=== PATIENT | male | born 1970 | race Caucasian/White ===

== ENCOUNTER → 2018-08-05 20:00 | Outpatient (CLI) | payer BC, SELFPAY | LOC: SL 23:22 | PROVIDERS: Referring Provider Clinical Nurse Specialist Acute Care; Visit Provider Clinical Nurse Specialist Acute Care | DX: G47.33 Obstructive sleep apnea (adult) (pediatric) (principal) | CPT/HCPCS: 95810 ==

== ENCOUNTER 2019-06-01 19:11 | Inpatient (IN) | payer BC, SELFPAY ==
[2019-06-01] VITALS (9 sets, daily range): BP systolic 116–134; BP diastolic 76–84; PULSE 81–118; RESP 14–24; TEMP 36.6–38.5; O2SAT 92–98; BMI 20.8; BMI 21.0; BMI 20.1
--- NOTE | 2019-06-01 20:08 | EKG12_ITS ---
Test Reason : SOB Blood Pressure : / mmHG Vent. Rate : 106 BPM Atrial Rate : 106 BPM P-R Int : 144 ms QRS Dur : 104 ms QT Int : 340 ms P-R-T Axes : 000 052 036 degrees QTc Int : 451 ms Sinus tachycardia Otherwise normal ECG Confirmed by DYAN EMANUEL ([id number]), mapping editor VIBHA MERCEDES ([id number]) on 06/03/2019 9:41:18 AM Referred By: MARTINA Confirmed By:DYAN EMANUEL
--- NOTE | 2019-06-01 20:09 | RAD_ITS ---
STUDY: X-RAY CHEST REASON FOR EXAM: Male, 49 years old. sent by urgent care. worsening flu symptoms. seen here last week for same. increased shortness of breath, weakness. TECHNIQUE: Single frontal view of the chest. COMPARISON: 06/30/2016 FINDINGS: Clips on the right. Right basilar alveolar disease. There is no demonstrated pleural abnormality. Normal size heart. Normal mediastinum and viola. Normal visualized pulmonary arteries. Normal visualized aortic arch and descending thoracic aorta. Normal visualized thoracic spine. Normal visualized ribs, clavicles, and shoulders. Right upper quadrant clips. RAD/Chest 1 View (Portable) IMPRESSION: Right basilar alveolar disease. Electronically Signed: Jaime Naranjo MD at 20:37 EST Tel , Service support ,
--- NOTE | 2019-06-01 20:09 | ED.VIS.GEN ---
History of Present Illness Chief Complaint: Fever Informant: Patient, Family Onset: Weeks - 1 Context: Gradual Onset Timing: Waxes and wanes Quality: achy Location: all over Current Severity: Moderate Maximum Severity: Moderate Worsened by: nothing in particular Relieved by: tylenol partially Associated Symptoms: myalgias, cough, sob, headache, ST, poor po intake, weakness all over Narrative: Patient diagnosed with influenza last week, 3 days after symptoms onset, which was about 9 days ago. He is getting worse. High fever still up to 103, short of breath, productive cough occasionally. No hemoptysis. Very poor appetite and oral intake. Headache, sore throat. Right ear decreased hearing but no pain. He was not started on Tamiflu because he presented outside of the window for the medication to be started, it was a different emergency room. He does not have a history of lung or heart disease that they know of but he does have a history of a stroke that left him with left arm weakness mostly. He is able to walk and usually does so without assistance but today he has been so weak that he has had trouble. He has had some dyspnea. No chest pains. No abdominal pain or vomiting. - Past Medical History (1) CVA (cerebral vascular accident) Status: Chronic (2) Patent foramen ovale Status: Chronic Past Medical History - Allergies and Home Meds Allergies/Adverse Reactions: Allergies Penicillins Allergy (Verified 06/01/19 20:47) Unknown Primary Care Physician: Care Physician,No Primary [Primary Care Provider] - Surgical History: - - As per HPI Lives: With Family Smoking Status: Current every day smoker - Family History Maternal Family History: Reports: No pertinent history Paternal Family History: Reports: No pertinent history Review of Systems General: Reports: Chills, Fever, Malaise, Sweats Eyes: Denies: Visual changes - bilaterally, Diplopia ENT: Reports: Rhinorrhea, Sore throat, - - decreased hearing right. Denies: Bilateral ear pain Cardiovascular: Denies: Chest pain, Palpitations Respiratory: Reports: Dyspnea, Cough, Sputum, Dyspnea on exertion. Denies: Orthopnea Gastrointestinal: Denies: Abdominal pain, Nausea, Vomiting, Diarrhea, Melena, Hematochezia Genitourinary: Denies: Dysuria, Hematuria, Frequency Musculoskeletal: Reports: Myalgias, Neck pain - sore. Denies: Arthralgias, Back pain, Swelling, Extremity Pain Skin: Denies: Rash, Wounds Neurological: Reports: Headache. Denies: Weakness, Numbness Physical Exam Vital Signs/Narrative: Vital Signs Temp Pulse Resp BP Pulse Ox 06/01/19 19:13 101.1 F H 118 H 16 134/80 H 92 Inital Vital Signs reviewed: Yes General: Well nourished, Well developed, No Acute Distress - Malaised Head: Normocephalic, Atraumatic Eyes: Perrl, EOMI ENT: Moist mucous membranes, No rhinorrhea, TM's clear - Partial cerumen impaction on right, TM is partially visible and nonerythematous. Neck: Supple, No lymphadenopathy. Negative for: Nontender - Mildly diffusely tender. No meningismus Cardiovascular: Regular rate, Regular rhythm, No murmurs Respiratory: No distress, CTA bilaterally - Rales both bases that cleared with bronchospasm and cough, Chest nontender Abdomen: Soft, Nontender, Nondistended, Normal bowel sounds Back: Nontender, Normal Inspection Extremities: Nontender, No edema Skin: Normal color, No rash, No Trauma Neurological: Alert, Oriented x3, Cranial nerves II-XII grossly intact, Normal Sensation, Weakness - Mostly left upper extremity Psychological: Normal affect, Normal Mood Diagnostic/Tx/Re-eval Impressions Chest X-Ray 06/01/19 20:09 IMPRESSION: Right basilar alveolar disease. Electronically Signed: Jaime Naranjo MD at 20:37 EST Tel , Service support , 06/01/19 20:09 Chest 1 View (Portable) [RAD] Stat Laboratory Results 06/01/19 06/01/19 06/01/19 20:20 20:20 20:20 WBC 16.7 H RBC 4.33 L Hgb 13.1 Hct 38.3 L MCV 88.5 MCH 30.3 MCHC 34.2 RDW Std Deviation 39.8 RDW Coeff of Joseph 12.2 Plt Count 320 MPV 10.0 Immature Gran % (Auto) 0.700 Neut % (Auto) 84.1 H Lymph % (Auto) 6.2 L [place] % (Auto) 8.7 Eos % (Auto) 0.0 Baso % (Auto) 0.3 Absolute Neuts (auto) 14.1 H Absolute Lymphs (auto) 1.03 Nucleated RBC % 0 PT 15.7 H INR 1.3 APTT 35.3 Sodium 133 L Potassium 3.5 Chloride 98 Carbon Dioxide 29.0 Anion Gap 6 BUN 7 Creatinine 0.82 Estim Creat Clear Calc 96.48 Est GFR (MDRD) Af Amer 126 Est GFR (MDRD) Non-Af 104 BUN/Creatinine Ratio 8.5 L Glucose 121 H Lactic Acid Calcium 8.7 Total Bilirubin 0.50 AST 16 ALT 29 Alkaline Phosphatase 89 Troponin I < 0.015 Total Protein 7.8 Albumin 2.7 L Globulin 5.1 H Albumin/Globulin Ratio 0.5 L Urine Color Urine Clarity Urine pH Ur Specific [place] Urine Protein Urine Glucose (UA) Urine Ketones Urine Occult Blood Urine Nitrite Urine Bilirubin Urine Urobilinogen Ur Leukocyte Esterase Urine RBC Urine WBC Ur Squamous Epith Cells Urine Bacteria Urine Mucus 06/01/19 06/01/19 20:20 21:25 WBC RBC Hgb Hct MCV MCH MCHC RDW Std Deviation RDW Coeff of Joseph Plt Count MPV Immature Gran % (Auto) Neut % (Auto) Lymph % (Auto) [place] % (Auto) Eos % (Auto) Baso % (Auto) Absolute Neuts (auto) Absolute Lymphs (auto) Nucleated RBC % PT INR APTT Sodium Potassium Chloride Carbon Dioxide Anion Gap BUN Creatinine Estim Creat Clear Calc Est GFR (MDRD) Af Amer Est GFR (MDRD) Non-Af BUN/Creatinine Ratio Glucose Lactic Acid 1.1 Calcium Total Bilirubin AST ALT Alkaline Phosphatase Troponin I Total Protein Albumin Globulin Albumin/Globulin Ratio Urine Color Yellow Urine Clarity Clear Urine pH 8.0 Ur Specific [place] 1.015 Urine Protein 15 H Urine Glucose (UA) Normal Urine Ketones Negative Urine Occult Blood Negative Urine Nitrite Negative Urine Bilirubin Negative Urine Urobilinogen 12 H Ur Leukocyte Esterase Negative Urine RBC 0 SEEN Urine WBC 0-5 SEEN Ur Squamous Epith Cells 0-5 SEEN Urine Bacteria 0 SEEN Urine Mucus 0 SEEN - Rhythm Strip Rhythm Strip: Sinus Tach Rate: 106 Ectopy: None - EKG Initial EKG Interpretation: No Acute Injury Pattern, Sinus Tachycardia - Medical Decision Making X-ray shows pneumonia. Unknown if this is influenza pneumonia or bacterial superinfection, so antibiotics to cover community-acquired pneumonia and Tamiflu both started as soon as the diagnosis was discovered. He meets sepsis criteria but is hemodynamically and clinically stable. He is still dyspneic after an aerosol, mildly. In no distress. Tried to take him off of oxygen but he was still hypoxic into the 80s so it was placed back to 4 L nasal cannula where he is satting at 95%. His lactate is within normal limits. Blood culture sent prior to antibiotics started. Plan is for admission to the hospital. Discussed with hospitalist. ED Disposition - Plan for ED Patient: Disposition: Acute Care Hospital [facility] Diagnosis: Influenza and pneumonia, Sepsis due to pneumonia, Hypoxemia Referrals: Care Physician,No Primary [Primary Care Provider] -
[2019-06-01] MEDS: Albuterol 2.5 MG/3 ML VIAL.NEB. INHALATION ×2 (20:23→22:39)
[2019-06-01] MEDS: Ketorolac 15 MG/ML Vial IV (20:33)
[2019-06-01 20:34] LABS: Absolute Lymphocyte Count 1.03 X10^3/uL (0.83-4.51); Absolute Neutrophil Count 14.1 X10^3/uL (2.0-7.7); Basophil# 0.05 X10^3/uL; Basophil% 0.3 % (0-1); Hematocrit 38.3 % (40-54); Hemoglobin 13.1 g/dL (13.0-16.5); Lymphocyte # 1.03 X10^3/ul (4.0); Lymphocyte % 6.2 % (19-41); Mean Corp Hgb Conc 34.2 g/dL (32-36); Mean Corpuscular Hgb 30.3 pg (27.0-32.0); Mean Corpuscular Volume 88.5 fL (80-94); Monocyte# 1.45 X10^3/uL; Monocyte% 8.7 % (0-10); NRBC Flagged by Analyzer 0 % (0-5); Neutrophil # 14.06 X10^3/uL (2.7-7.7); Neutrophil % 84.1 % (47-70); Platelet Count 320 K/mm3 (150-450); RBC Distribution Width CV 12.2 % (11.6-14.6); RBC Distribution Width SD 39.8 fl (35.1-43.9); Red Blood Count 4.33 M/mm3 (4.6-6.2); White Blood Count 16.7 K/mm3 (4.4-11.0)
[2019-06-01] MEDS: Acetaminophen 500 MG Tablet 1000 MG PO (20:35)
[2019-06-01] MEDS: 0.9% Normal Saline 1,000 ML 999 ML IV (20:36)
[2019-06-01 20:43] LABS: International Normalized Ratio 1.3; Prothrombin Time (Protime)PT. 15.7 SECONDS (11.7-14.9)
[2019-06-01 20:44] LABS: Partial Thromboplast Time 35.3 Seconds (24.1-36.2)
[2019-06-01 20:56] LABS: ALB/GLOB Ratio 0.5 RATIO (0.9-2.4); AST(SGOT) 16 U/L (15-37); Alanine Aminotransfer ALT/SGPT 29 U/L (16-61); Albumin, Serum 2.7 g/dL (3.2-5.0); Alkaline Phosphatase 89 U/L (45-117); Anion Gap 6 (5-15); BUN 7 mg/dL (7-18); BUN/Creat Ratio 8.5 RATIO (10-20); Calcium,Total 8.7 mg/dL (8.5-10.1); Chloride 98 mmol/L (98-107); Creatinine, Serum 0.82 mg/dL (0.70-1.30); EST Glomerular Filtration Rate 104 mL/min (>60); Est Glom Filt Rate - Afr Amer 126 mL/min (>60); Estimated Creatinine Clearance 96.48 ml/min; Globulin 5.1 g/dL (2.2-4.2); Glucose 121 mg/dL (74-106); Potassium 3.5 mmol/L (3.5-5.1); Protein, Total 7.8 g/dL (6.4-8.2); Sodium Level 133 mmol/L (136-145)
[2019-06-01 21:19] LABS: Lactic Acid 1.1 mmol/L (0.4-1.9)
[2019-06-01 21:33] LABS: Bacteria 0 SEEN /hpf (None Seen); Mucous, Urine 0 SEEN /hpf (<or=2+); Red Blood Cells-Urine 0 SEEN /hpf (0-5)
[2019-06-01 21:35] LABS: Color, Urine Yellow (Yellow); Glucose, Dipstick Normal (Normal); Ketone-Dipstick Negative (Negative); Leukocyte Esterase-Dipstick Negative /ul (Negative); Nitrite-Dipstick Negative (Negative); Occult Blood-Urine Negative /ul (Negative); Protein-Dipstick 15 mg/dl (Negative); Specific Gravity, Urine 1.015 (1.002-1.030); Urine Bilirubin Dipstick Negative (Negative); Urine Clarity Clear (Clear); Urine Urobilinogen 12 mg/dl (Normal)
[2019-06-01 21:51] LABS: Squamous Epithelial Cells - UA 0-5 SEEN /hpf (0-5); White Blood Cells 0-5 SEEN /hpf (0-5)
[2019-06-01] MEDS: Oseltamivir Phosphate 75 MG Capsule PO (22:16)
[2019-06-02] VITALS (19 sets, daily range): BP systolic 105–124; BP diastolic 74–82; PULSE 76–111; RESP 16–24; TEMP 36.4–37.7; O2SAT 94–99
[2019-06-02 03:47] LABS: M R Staph aureus DNA By PCR Negative (Negative); Probe Check PASS; Specimen Processing Control PASS
[2019-06-02] MEDS: guaiFENesin 1,200 MG Tablet 1200 MG PO ×2 (04:16→21:07)
--- NOTE | 2019-06-02 04:27 | HP.PCM_ITS ---
Problem List (1) Influenza and pneumonia Status: Acute (2) Sepsis due to pneumonia Status: Acute (3) Hypoxemia Status: Acute (4) Tobacco dependence Status: Chronic (5) Patent foramen ovale Status: Inactive (6) CVA (cerebral vascular accident) Status: Chronic Qualifiers: CVA mechanism: unspecified Qualified Code(s): I63.9 - Cerebral infarction, unspecified History of Present Illness Date of Admission: 06/02/19 Chief Complaint: malaise The patient is a 49 year old M with a significant history of multiple CVAs who presents emergency department with malaise that has been going on for 1 1/2 weeks to 2 weeks. He reported that he was diagnosed with influenza however he received no treatment since that past the window for treatment. Associated with his symptoms is headache; stomach ache; productive cough of yellow and white sputum. He reports a fever with home temperature between 101-102 F. Further he reports chills without rigors. He reports weakness to the point that he cannot stand up. Chest x-ray showed right basilar alveolar disease. Past Medical History Past Medical History (Chronic Problems): Chronic Problems Tobacco dependence (Chronic) CVA (cerebral vascular accident) (Chronic) Allergies Penicillins Allergy (Verified 06/01/19 20:47) Unknown Home Medications: Ambulatory Orders Medication Instructions Recorded Multivitamin [Multiple Vitamins] 1 each PO DAILY 06/30/16 Aspirin E.C. [Ecotrin] 81 mg PO DAILY@0800 tablet 07/02/16 Atorvastatin Calcium [Lipitor] 40 mg PO QHS #30 tablet 07/02/16 Surgical History: - - Lung surgery. Psychiatric History: No pertinent psych hx Lives: Spouse/ Significant Other Smoking Status: Former smoker - *Family History Maternal History Items: - - Patient denies knowledge of maternal medical history. Paternal History Items: Diabetes Review of Systems Constitutional: Reports: Anorexia, Chills, Fever, Malaise, Weakness, Fatigue HEENT: Reports: Head Aches. Denies: Sinus Congestion, Sinus Drainage Cardiovascular: Denies: Chest Pain, Palpitations Respiratory: Reports: Cough, Shortness of Breath, Sputum production Gastrointestinal: Reports: Abdominal Pain. Denies: Nausea, Vomiting Genitourinary: Denies: Dysuria Musculoskeletal: Reports: Muscle pain. Denies: Joint Pain, Joint Tenderness Skin: Denies: Rash, Wounds Neurological: Reports: Numbness - Right hand, chronic, attributes to history of CVA.. Denies: Focal weakness, Tingling Psychiatric: Denies: Anxiety, Depression, Homicidal Ideations, Suicidal Ideations Hematologic/ Lymphatic: Denies: Easy Bruising, Easy Bleeding VTE Information - Inpt Only VTE Present on Admission: No VTE Mechan Device Prophylaxis: None VTE Pharm Prophylaxis ordered?: Yes Patient Problems: Active and Suspected Problems Influenza and pneumonia (Acute) Sepsis due to pneumonia (Acute) Hypoxemia (Acute) - Physical Exam Vitals/I&O's: Vital Signs Temp Pulse Resp BP Pulse Ox 98 F 76 18 124/82 H 94 06/02/19 04:00 06/02/19 04:00 06/02/19 04:00 06/02/19 04:00 06/02/19 04:00 Oxygen Flow Rate (L/min) 3 Oxygen Delivery Method Nasal Cannula Weight: 61.6 kg Body Mass Index (BMI) 20.0 Finger Stick Blood Glucose 95 Intake and Output for Last 24 Hours 05/31/19 06/01/19 06/02/19 23:59 23:59 23:59 Intake Total 1305 / 1305 Balance 1305 / 1305 General: Alert, Oriented x3, Cooperative HEENT: Atraumatic, PERRLA, EOMI, Normocephalic Neck: Supple, No JVD, Negative Carotid Bruits Lungs: Normal air movement, Diminished Cardiovascular: Regular rate, Normal S1, Normal S2, No murmurs Abdomen: Bowel Sounds Present, Soft, Non Tender Extremities: No edema, Capillary Refill Less than 3 Seconds Skin: No rashes, No breakdown Musculoskeletal: No Tenderness to Palpation of Joints or Extremities Neurological: Cranial nerves II-XII grossly intact Psych/Mental Status: Normal Affect, Appropriate Microbiology Past 72 Hours 06/01/19 21:25 Urine, Clean Catch Streptococcus pneumoniae Antigen (M - Final 06/01/19 21:25 Urine, Clean Catch Legionella Antigen - Final 06/01/19 21:25 Mucosa - Throat Group A Streptococcus Rapid Screen - P reliminary Laboratory Results 06/01/19 20:20: WBC 16.7 H, RBC 4.33 L, Hgb 13.1, Hct 38.3 L, MCV 88.5, MCH 30.3, MCHC 34.2, RDW Std Deviation 39.8, RDW Coeff of Joseph 12.2, Plt Count 320, MPV 10.0, Immature Gran % (Auto) 0.700, Neut % (Auto) 84.1 H, Lymph % (Auto) 6.2 L, [place] % (Auto) 8.7, Eos % (Auto) 0.0, Baso % (Auto) 0.3, Absolute Neuts (auto) 14.1 H, Absolute Lymphs (auto) 1.03, Nucleated RBC % 0 06/01/19 20:20: PT 15.7 H, INR 1.3, APTT 35.3 06/01/19 20:20: Sodium 133 L, Potassium 3.5, Chloride 98, Carbon Dioxide 29.0, Anion Gap 6, BUN 7, Creatinine 0.82, Estim Creat Clear Calc 96.48, Est GFR (MDRD) Af Amer 126, Est GFR (MDRD) Non-Af 104, BUN/Creatinine Ratio 8.5 L, Glucose 121 H, Calcium 8.7, Total Bilirubin 0.50, AST 16, ALT 29, Alkaline Phosphatase 89, Troponin I < 0.015, Total Protein 7.8, Albumin 2.7 L, Globulin 5.1 H, Albumin/Globulin Ratio 0.5 L 06/01/19 20:20: Lactic Acid 1.1 06/01/19 21:25: Urine Color Yellow, Urine Clarity Clear, Urine pH 8.0, Ur Specific [place] 1.015, Urine Protein 15 H, Urine Glucose (UA) Normal, Urine Ketones Negative, Urine Occult Blood Negative, Urine Nitrite Negative, Urine Bilirubin Negative, Urine Urobilinogen 12 H, Ur Leukocyte Esterase Negative, Urine RBC 0 SEEN, Urine WBC 0-5 SEEN, Ur Squamous Epith Cells 0-5 SEEN, Urine Bacteria 0 SEEN, Urine Mucus 0 SEEN 06/02/19 00:05: MRSA (PCR) Negative Current Medications Acetaminophen (Tylenol) 650 mg PO Q6H PRN PRN PRN Reason: Pain Score 1-10/Temp > 100.7 F Albuterol Sulfate (Ventolin Aerosols) 2.5 mg INHALATION Q2H PRN PRN PRN Reason: Shortness of Breath/Wheezing Albuterol/Ipratropium (Duoneb) 3 ml INHALATION Q4HWA.RT JOSE Aspirin (Ecotrin) 81 mg PO DAILY@0800 JOSE Atorvastatin Calcium (Lipitor) 40 mg PO QHS [facility] Enoxaparin Sodium (Lovenox) 40 mg SC DAILY [facility] Glucagon () 1 mg IM .X1 PRN PRN Reason: Hypoglycemia Guaifenesin (Mucinex) 1,200 mg PO BID [facility] Last Admin: 06/02/19 04:16 Dose: 1,200 mg Documented by: Ceftriaxone Sodium 2 gm/ (Sodium Chloride) 50 mls @ 100 mls/hr IV Q24H [facility] Azithromycin 500 mg/ Dextrose 255 mls @ 250 mls/hr IV Q24H [facility] Dextrose (Dextrose 10%-Water) 250 mls @ 999 mls/hr IV .Q16M PRN; Protocol PRN Reason: HYPOGLYCEMIA Multivitamins (Multivitamin) 1 tablet PO DAILY@0800 [facility] Nutritional Formula (Lactose Free) (Ensure Enlive) 120 ml PO 4X/DAY [facility] Ondansetron HCl (Zofran) 4 mg IV Q8H PRN PRN PRN Reason: NAUSEA/VOMITING Oseltamivir Phosphate (Tamiflu) 75 mg PO BID [facility] Stop: 06/06/19 10:01 Senna/Docusate Sodium (Senokot-S, Richa-Colace) 2 tablet PO BID PRN PRN PRN Reason: Constipation Sodium Chloride () 10 - 40 ml IV UD PRN PRN Reason: SALINE FLUSH Assessment/Plan All Active Problems Influenza and pneumonia (Acute) Sepsis due to pneumonia (Acute) Hypoxemia (Acute) The patient is a 49 year old M with a significant history of multiple CVAs who presents emergency department with malaise that has been going on for 1/2 weeks to 2 weeks; positive influenza by received no treatment because he was past window; headache; stomach ache; productive cough of yellow and white sputum; fever and chills and x-ray finding consistent with right basilar alveolar disease consistent with sepsis secondary to pneumonia. Sepsis secondary to pneumonia Possible gram-negative or gram-positive. Lactic acid: 1.1 RR ~highest of 24 Heart rate: Highest of 118 Oxygen saturation: 88% on nasal cannula. Strep pneumonia and urinary Legionella antigen ordered. Blood culture ?2 is pending Chest x-ray: Right basilar alveolar disease. Chest x-ray was independently reviewed. I agree with that interpretation. Respiratory Gram stain and culture pending Antibiotics: Started on azithromycin and ceftriaxone; continued. DuoNeb scheduled. Albuterol as needed Influenza infection Tamiflu started emergency department; continued Generalized weakness Likely secondary to pneumonia PT and OT consult. Pneumonia treatment as above. Prophylaxis Subcutaneous Lovenox. Code Visit Inpatient E&M: 15028 Init Hosp L3
[2019-06-02] MEDS: Albuterol 2.5 MG/3 ML VIAL.NEB. INHALATION (05:54)
[2019-06-02 06:13] LABS: Absolute Neutrophil Count 5.2 X10^3/uL (2.0-7.7); Basophil# 0.05 X10^3/uL; Basophil% 0.6 % (0-1); Eosinophil# 0.12 X10^3/uL; Eosinophils% 1.6 % (0-5); Hematocrit 33.1 % (40-54); Hemoglobin 12.4 g/dL (13.0-16.5); Mean Corp Hgb Conc 37.5 g/dL (32-36); Mean Corpuscular Hgb 34.2 pg (27.0-32.0); Mean Corpuscular Volume 91.2 fL (80-94); Mean Platelet Vol. 9.9 fl (6.2-12.0); Monocyte# 0.63 X10^3/uL; Monocyte% 8.2 % (0-10); NRBC Flagged by Analyzer 0 % (0-5); Neutrophil # 5.16 X10^3/uL (2.7-7.7); Platelet Count 220 K/mm3 (150-450); RBC Distribution Width CV 15.6 % (11.6-14.6); RBC Distribution Width SD 49.1 fl (35.1-43.9); Red Blood Count 3.63 M/mm3 (4.6-6.2); White Blood Count 7.7 K/mm3 (4.4-11.0)
[2019-06-02 06:51] LABS: Anion Gap 8 (5-15); BUN 7 mg/dL (7-18); BUN/Creat Ratio 11.5 RATIO (10-20); Calcium,Total 8.3 mg/dL (8.5-10.1); Chloride 101 mmol/L (98-107); Creatinine, Serum 0.61 mg/dL (0.70-1.30); EST Glomerular Filtration Rate 148 mL/min (>60); Est Glom Filt Rate - Afr Amer 179 mL/min (>60); Estimated Creatinine Clearance 124.83 ml/min; Glucose 108 mg/dL (74-106); Potassium 3.6 mmol/L (3.5-5.1); Sodium Level 137 mmol/L (136-145)
--- NOTE | 2019-06-02 07:30 | PCM.PN.BLA ---
Progress Note 49y/o male with PMHx of 4 CVAs, who comes in with generalised malaise, cough and being managed as pneumonia, confirmed with CXR. Patient was seen and examined. He feels very fatigued, short of breath. Having low-grade fevers, T-max of 101.3F, is on 2 L of oxygen saturating at 99% Lab review showed improved WBC count to 7.7, resolved hyponatremia Continue on gentle IV fluids, IV ceftriaxone and azithromycin STROKE Vital Signs/Narrative: Vital Signs Temp Pulse Resp BP Pulse Ox 06/02/19 06:07 96 06/02/19 05:55 101 H 24 H 96 06/02/19 04:00 98 F 76 18 124/82 H 94
[2019-06-02] MEDS: Acetaminophen 325 MG Tablet 650 MG PO (09:35)
[2019-06-02] MEDS: Benzonatate 100 MG Capsule PO ×3 (09:35→21:07)
[2019-06-02] MEDS: Aspirin E.C. 81 MG Tablet PO (09:35)
[2019-06-02] MEDS: 0.9% Saline Lock 10 ML Syringe IV ×2 (09:35→11:40)
[2019-06-02] MEDS: Enoxaparin 40 MG/0.4 ML Syringe SC (09:36)
--- NOTE | 2019-06-02 11:20 | CASEMGMT ---
RN RAFAELA Face to Face with patient for initial transition planning/care coordination assessment. RN CM introduced self and role at [facility]. Patient sitting in chair, alert and oriented. Patient willing to participate in assessment and is able to answer all questions appropriately. Care providers, pharmacy, and demographics verified. Patient wishes to discharge home, denies need for home health at this time. Patient states he has no further needs or concerns at this time. CM to follow for discharge planning needs that may arise. PCP: No PCP, patient provided with list of PCP Specialists: None Preferred Pharmacy: [facility] Insurance: [employer] Prescription Benefit: yes Living Will/HPOA: none LNOK: Living Arrangements: Patient lives with 2 story home. Patient independent and able to ambulate stairs. Transportation: self/ DME/HHC: Patient denies need for DME or HHC. Disposition Plan: Patient to discharge home with family support and follow-up plans in place. Nalini NÚÑEZ, RN, CM
[2019-06-02] MEDS: 0.9% Normal Saline 1,000 ML 100 ML IV ×2 (11:40→22:36)
[2019-06-02] MEDS: Ipratropium/Albuterol Sulfate 3 ML AMPUL.NEB INHALATION ×3 (11:44→19:32)
--- NOTE | 2019-06-02 12:14 | NURSING ---
Student documentation reviewed.
[2019-06-02] MEDS: Atorvastatin Calcium 40 MG Tablet PO (21:07)
[2019-06-03] VITALS (7 sets, daily range): BP systolic 113–119; BP diastolic 75–86; PULSE 87–99; RESP 18; TEMP 36.9; O2SAT 93–96
[2019-06-03] MEDS: Ipratropium/Albuterol Sulfate 3 ML AMPUL.NEB INHALATION ×2 (06:47→10:43)
[2019-06-03] MEDS: Aspirin E.C. 81 MG Tablet PO (09:49)
[2019-06-03] MEDS: Enoxaparin 40 MG/0.4 ML Syringe SC (09:50)
[2019-06-03] MEDS: Multivitamins,Therapeutic Tablet 1 TABLET PO (09:50)
[2019-06-03] MEDS: guaiFENesin 1,200 MG Tablet 1200 MG PO (09:50)
--- NOTE | 2019-06-03 10:15 | DCINST_ITS ---
- Discharge Diagnoses Current Active Problems: Current Active and Chronic Problems Influenza and pneumonia (Acute) Sepsis due to pneumonia (Acute) Hypoxemia (Acute) Reason(s) for Visit for Discharge Instructions: Fever and cough You will use the following diet at home:: Regular Your food should be the consistency of: Regular Your liquids should be the consistency of: Regular/Thin Discharge Activity: Return to Normal Activity Instructions: Pneumonia, Treating Pneumonia Additional Instructions: Complete your antibiotics. Continue to use your incentive spirometer. Continue to remain active and eat healthy. Let your doctor know if you develop fever >101.3F or have progressive worsening shortness of breath. Allergies/Adverse Reactions: Allergies Penicillins Allergy (Verified 06/01/19 20:47) Unknown Medications to take at Discharge Multivitamin [Multiple Vitamins] 1 each PO DAILY 06/30/16 Aspirin E.C. [Ecotrin] 81 mg PO DAILY@0800 tablet 07/02/16 Atorvastatin Calcium [Lipitor] 40 mg PO QHS #30 tablet 07/02/16 Acetaminophen [Tylenol Tablet] 650 mg PO Q6H PRN PRN tablet 06/03/19 Amoxicillin/Potassium Clav [Augmentin 875-125 Tablet] 1 ea PO BID 5 Days #10 tab 06/03/19 Azithromycin 500 mg PO DAILY 3 Days #3 tab 06/03/19 Benzonatate [Tessalon Perle] 100 mg PO 4X/DAY PRN PRN 5 Days #20 cap 06/03/19 Ensure Enlive 120 ml PO 4X/DAY 30 Days #120 liquid 06/03/19 Guaifenesin [Mucinex] 1,200 mg PO BID 10 Days #20 tab 06/03/19 The following prescriptions were given: Amoxicillin/Potassium Clav [Augmentin 875-125 Tablet] 1 ea PO BID 5 Days #10 tab [id number] Azithromycin 500 mg PO DAILY 3 Days #3 tab Transmission [facility] Ensure Enlive 120 ml PO 4X/DAY 30 Days #120 liquid Transmission [facility]: [facility] Guaifenesin [Mucinex] 1,200 mg PO BID 10 Days #20 tab Transmission [facility]: [facility] Benzonatate [Tessalon Perle] 100 mg PO 4X/DAY PRN PRN 5 Days #20 cap PRN Reason: COUGH Transmission Status: Pending to [id number] Primary Care Physician: Care Physician,No Primary [Primary Care Provider] - Please follow up with your Primary Care Physician in: within 1-2 weeks Test Results: Test results from this visit will be discussed in further detail at your follow- up appointment, if applicable. Proposed Discharge Date: 06/03/19
--- NOTE | 2019-06-03 10:18 | PCM.DC.SUM ---
Discharge Date and Diagnosis Date of Admission: 06/02/19 Date of Discharge: 06/03/19 - Primary Discharge Diagnosis Active and Suspected Problems Sepsis secondary to pneumonia - Secondary Discharge Diagnosis Chronic Problems Tobacco dependence (Chronic) CVA (cerebral vascular accident) (Chronic) Hospital Course and Treatment Imaging Results: Clinical Impression(s) from Imaging Studies Chest X-Ray 06/01/19 20:09 IMPRESSION: Right basilar alveolar disease. Electronically Signed: Jaime Naranjo MD at 20:37 EST Tel , Service support , None Operations: None Procedures: None Summary of Care Provided: The patient is a 49 year old M with past medical history of multiple CVAs, who comes in with complaints of generalized malaise ongoing with 2 weeks. Patient admits that he was diagnosed with influenza but was not on Tamiflu because he was past the window for Tamiflu. He comes in with fever, chills, progressive shortness of breath. Admitting chest x-ray showed right basilar alveolar disease. [facility] and managed as pneumonia. He was started on IV ceftriaxone and azithromycin and continued on gentle fluids as well as oxygen. By the next day patient was off oxygen, was ambulated and did not qualify for home oxygen. He was discharged on cefdinir and azithromycin. He was encouraged to use his incentive spirometer. He will follow-up with his primary care doctor within 2 weeks. Subjective: On the day of discharge, patient was seen and examined. Denied any new complaints. - Physical Exam Vitals/I&O's: Vital Signs Temp Pulse Resp BP Pulse Ox 98.4 F 96 18 113/75 96 06/03/19 09:48 06/03/19 09:48 06/03/19 09:48 06/03/19 09:48 06/03/19 09:48 Oxygen Flow Rate (L/min) 1 Oxygen Delivery Method Room Air Weight: 61.6 kg Body Mass Index (BMI) 20.0 Finger Stick Blood Glucose 95 Intake and Output for Last 24 Hours 06/01/19 06/02/19 06/03/19 23:59 23:59 23:59 Intake Total 1305 / 1305 2981.67 / 2981.67 Output Total 2049 400 / 400 Balance 1305 / 1305 931.67 / 931.67 -400 / -400 General: Alert, Oriented x3, Cooperative, No apparent distress HEENT: Atraumatic, PERRLA, EOMI, Normocephalic Oral: Moist Mucosa Neck: Supple Lungs: Diminished Cardiovascular: Regular rate, Regular Rhythm, Normal S1, Normal S2, No murmurs Abdomen: Bowel Sounds Present, Soft, Non Tender, Non-Distended, No Hepato-splenomegaly Extremities: No edema Skin: No rashes Musculoskeletal: No Tenderness to Palpation of Joints or Extremities Lymphatic: No Cervical, Supraclavicular, or Inguinal Adenopathy Neurological: Cranial nerves II-XII grossly intact, Neuro grossly intact Psych/Mental Status: Normal Affect, Appropriate Microbiology Past 72 Hours 06/02/19 17:20 Sputum, Expectorated/Coughed Gram Stain - Preliminary 06/01/19 21:25 Mucosa - Throat Group A Streptococcus Rapid Screen - Preliminary 06/01/19 21:25 Urine, Clean Catch Streptococcus pneumoniae Antigen (M - Final 06/01/19 21:25 Urine, Clean Catch Legionella Antigen - Final Current Medications Acetaminophen (Tylenol) 650 mg PO Q6H PRN PRN PRN Reason: Pain Score 1-10/Temp > 100.7 F Last Admin: 06/02/19 09:35 Dose: 650 mg Documented by: Albuterol Sulfate (Ventolin Aerosols) 2.5 mg INHALATION Q2H PRN PRN PRN Reason: Shortness of Breath/Wheezing Last Admin: 06/02/19 05:54 Dose: 2.5 mg Documented by: Albuterol/Ipratropium (Duoneb) 3 ml INHALATION Q4HWA.RT [facility] Last Admin: 06/03/19 06:47 Dose: 3 ml Documented by: Aspirin (Ecotrin) 81 mg PO DAILY@0800 [facility] Last Admin: 06/03/19 09:49 Dose: 81 mg Documented by: Atorvastatin Calcium (Lipitor) 40 mg PO QHS [facility] Last Admin: 06/02/19 21:07 Dose: 40 mg Documented by: Benzonatate (Tessalon Perle) 100 mg PO 4X/DAY PRN PRN PRN Reason: COUGH Last Admin: 06/02/19 21:07 Dose: 100 mg Documented by: Enoxaparin Sodium (Lovenox) 40 mg SC DAILY [facility] Last Admin: 06/03/19 09:50 Dose: 40 mg Documented by: Glucagon () 1 mg IM .X1 PRN PRN Reason: Hypoglycemia Guaifenesin (Mucinex) 1,200 mg PO BID [facility] Last Admin: 06/03/19 09:50 Dose: 1,200 mg Documented by: Ceftriaxone Sodium 2 gm/ (Sodium Chloride) 50 mls @ 100 mls/hr IV Q24H [facility] Last Infusion: 06/02/19 23:10 Dose: Infused Documented by: Azithromycin 500 mg/ Dextrose 255 mls @ 250 mls/hr IV Q24H [facility] Last Infusion: 06/02/19 22:20 Dose: Infused Documented by: Dextrose (Dextrose 10%-Water) 250 mls @ 999 mls/hr IV .Q16M PRN; Protocol PRN Reason: HYPOGLYCEMIA Multivitamins (Multivitamin) 1 tablet PO DAILY@0800 [facility] Last Admin: 06/03/19 09:50 Dose: 1 tablet Documented by: Nutritional Formula (Lactose Free) (Ensure Enlive) 120 ml PO 4X/DAY [facility] Last Admin: 06/03/19 09:50 Dose: Not Given Documented by: Ondansetron HCl (Zofran) 4 mg IV Q8H PRN PRN PRN Reason: NAUSEA/VOMITING Senna/Docusate Sodium (Senokot-S, Richa-Colace) 2 tablet PO BID PRN PRN PRN Reason: Constipation Sodium Chloride () 10 - 40 ml IV UD PRN PRN Reason: SALINE FLUSH Last Admin: 06/02/19 11:40 Dose: 10 ml Documented by: Discharge Diet: Low fat/ Low Cholesterol, 2000 mg Sodium Diet Discharge Activity: Return to Normal Activity Home Medications: Medications to take at Discharge Multivitamin [Multiple Vitamins] 1 each PO DAILY 06/30/16 Aspirin E.C. [Ecotrin] 81 mg PO DAILY@0800 tablet 07/02/16 Atorvastatin Calcium [Lipitor] 40 mg PO QHS #30 tablet 07/02/16 Acetaminophen [Tylenol Tablet] 650 mg PO Q6H PRN PRN tab 06/03/19 Azithromycin 500 mg PO DAILY 3 Days #3 tab 06/03/19 Benzonatate [Tessalon Perle] 100 mg PO 4X/DAY PRN PRN 5 Days #20 cap 06/03/19 Cefdinir [Omnicef [equiv]] 300 mg PO Q12H 5 Days #10 cap 06/03/19 Ensure Enlive 120 ml PO 4X/DAY 30 Days #120 liquid 06/03/19 Guaifenesin [Mucinex] 1,200 mg PO BID 10 Days #20 tab 06/03/19 Following Prescrptions Were Given to Patient: Azithromycin 500 mg PO DAILY 3 Days #3 tab Transmission Status: Received by [id number] Ensure Enlive 120 ml PO 4X/DAY 30 Days #120 liquid Transmission Status: Received by [facility] Guaifenesin [Mucinex] 1,200 mg PO BID 10 Days #20 tab Transmission Status: Received by [facility] Cefdinir [Omnicef [equiv]] 300 mg PO Q12H 5 Days #10 cap Transmission Status: Received by [facility] Benzonatate [Tessalon Perle] 100 mg PO 4X/DAY PRN PRN 5 Days #20 cap PRN Reason: COUGH Transmission Status: Received by [facility] Primary Care Physician: Care Physician,No Primary [Primary Care Provider] - Please follow up with your Primary Care Physician in: within 1-2 weeks Patient Instructions: Treating Pneumonia, Pneumonia Disposition: Home Minutes spent on discharge:: 40 Patient Condition:: Stable Medical Necessity - Tobacco Use Smoking Status: Former smoker Tobacco Use: Non-smoker Meaningful Use Info Meaningful Use Diagnoses (Choose all that apply): None applicable Code Visit Inpatient E&M: 18247 Disch Hosp
== END 2019-06-03 13:15 | disposition home or self-care (01) | DRG 871 ==
LOC: ED 22:01 → MS3 22:10
PROVIDERS: Admitting Provider Hospitalist; Emergency Provider Emergency Medicine; Visit Provider Internal Medicine
DX: A41.9 Sepsis, unspecified organism (principal); J11.00 Influenza due to unidentified influenza virus with unspecified type of pneumonia; E87.1 Hypo-osmolality and hyponatremia; Q21.1 Atrial septal defect; R09.02 Hypoxemia; I69.334 Monoplegia of upper limb following cerebral infarction affecting left non-dominant side; Z87.891 Personal history of nicotine dependence
CPT/HCPCS: 36415; 71045; 80048; 80053; 81001; 83605; 84484; 85025; 85610; 85730; 87040; 87070; 87086; 87205; 87449; 87641; 87880; 93005; 94640; 97162; 97166; 97802; 99285; J7030; J7050; A4216; J0696

== ENCOUNTER 2023-05-08 14:50 | Emergency (ER) | payer OTHER, SELFPAY ==
[2023-05-08 14:52] VITALS: BP 102/75; PULSE 102; RESP 18; TEMP 39.3; O2SAT 95; BMI 19.9
[2023-05-08 15:26] VITALS: BP 137/77; PULSE 89; RESP 22; O2SAT 95
[2023-05-08] MEDS: Acetaminophen 325 MG Tablet 650 MG PO (15:56)
--- NOTE | 2023-05-08 15:57 | EX.ED.VIS.UR ---
HPI HPI - URI History of Present Illness Chief Complaint: Cold Sx Informant: patient Onset/Context/Timing Onset: Today Context: Gradual Onset Timing: Continuous Current Severity: Moderate Maximum Severity: Moderate Associated Symptoms Associated Symptoms: Positive for Headache, Myalgias and Productive Cough; Negative for Nausea, Vomiting or Diarrhea Narrative Narrative: 53-year-old male past medical history of prior strokes, postprocedural esophageal perforation and prior pneumonia. has been home sick for about a week he started getting symptoms today of cough fever and generalized weakness. With muscle aches. Prior similar symptoms: Yes Recent Illness/Hospitalization: No ROS ROS ED ROS Narrative Cough. Fever. Weakness. Review of Systems ROS Unobtainable: Denies due to encephalopathy Constitutional Constitutional ED: Reports fever(s) Eyes Eyes: Denies blurry vision ENT ENT ED: Reports sore throat; Denies ear pain or rhinorrhea Cardiovascular Cardiovascular: Denies chest pain or palpitations Respiratory/Chest Respiratory/Chest: Reports cough; Denies dyspnea Gastrointestinal Gastrointestinal: Denies abdominal pain, constipation, diarrhea or vomiting Genitourinary Genitourinary ED: Denies dysuria or hematuria Musculoskeletal Musculoskeletal: Reports myalgias; Denies arthralgias or back pain Integumentary Denies abscess Neurologic Neurologic: Reports headache(s) Psychiatric Psychiatric: Denies anxiety Endocrine Endocrinology: Denies cold intolerance Hematologic/Lymphatic Hematologic/Lymphatic: Denies easy bleeding or easy bruising Allergic/Immunologic Allergic/Immunologic ED: Denies mouth swelling or tongue swelling [facility] Medical History Stroke Home Medications multivitamin (Multiple Vitamins tablet) 1 ea PO DAILY vitamin 06/30/16 [History Last Taken 05/31/19 22:00] aspirin 81 mg tablet,delayed release 81 mg PO DAILY@0800 07/02/16 [Rx Last Taken 05/31/19 22:00] atorvastatin 40 mg tablet 40 mg PO QHS ##30 07/02/16 [Rx Last Taken 05/31/19 22:00] acetaminophen 325 mg tablet 650 mg (2 x 325 mg) PO Q6H PRN PRN Pain Score 1-10/Temp > 100.7 F 06/03/19 [Rx Last Taken Unknown] azithromycin 250 mg tablet (Zithromax Z-Rl) 250 mg PO DAILY 4 days #4 tabs 05/08/23 [Rx Last Taken Unknown] Allergy/AdvReac Type Severity Reaction Status Date / Time Penicillins Allergy Unknown Verified 05/08/23 14:52 Surgical History History of open heart surgery Social History Smoking Status: Former smoker EXAM Physical Exam Narrative Exam Narrative: 53-year-old male with an obvious fever 102.8 orally. Clinically looks unwell but not necessarily septic. Pulse ox is 95% on room air no hypoxia. H EENT exam dry mucous membranes. Pupils round reactive light. Posterior pharynx unremarkable. No trouble swallowing or breathing. Neck nontender no lymphadenopathy. No meningismus. Lungs coarse breath sounds on the left. Clear on the right. Heart regular rhythm rate about 90 no murmur. Chest wall and ribs nontender. Abdomen soft nontender. Back nontender. Skin no rashes. Moving all 4 extremities. Nontender no edema. 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 Dorsi plantarflexion intact. 5 out of 5. He is awake and alert. Answering questions following commands. Const Vital Signs: 05/08/23 14:52 05/08/23 15:26 05/08/23 15:26 Temperature 102.8 F H Temperature Source Oral Pulse Rate 102 H 89 Respiratory Rate 18 22 H Respiratory Effort Short of Breath Respiratory Pattern Tachypnea Blood Pressure 102/75 137/77 H Blood Pressure Mean 84 97 Pulse Ox 95 95 Oxygen Delivery Method Room Air 05/08/23 16:50 Temperature 99.8 F H Temperature Source Oral Pulse Rate Respiratory Rate Respiratory Effort Respiratory Pattern Blood Pressure Blood Pressure Mean Pulse Ox Oxygen Delivery Method Positive well nourished and well developed; Negative for obese, cachectic or contractures General Appearance ED: well developed and NAD; Negative for cachectic, contractures, cyanotic, diaphoretic or pallor Nutritional Appearance: Negative for cachectic or obese HEENT Reports dry mucous membranes; Denies moist mucous membranes normocephalic and atraumatic; Negative for scalp tenderness Face and Sinus: Negative for sinus tenderness, maxillary instability or facial tenderness Mouth ED: Yes dry mucous membranes Mouth: dry mucous membranes Throat: posterior oropharynx normal Eyes PERRL and EOMs intact bilaterally General Eye ED: Negative for pale conjunctiva or scleral icterus Neck no lymphadenopathy, supple, no meningeal signs and no JVD General: Negative for anterior neck swelling, lymphadenopathy or other Resp normal respiratory effort and clear to auscultation bilaterally Effort and Inspection: Negative for retractions Auscultation: Negative for rales, rhonchi or wheezes Cardio S1 normal heart sound, S2 normal heart sound and no murmurs Rate: regular rate Rhythm: regular rhythm GI non-tender, non-distended and no masses Inspection: Negative for abdominal distention Auscultation: normoactive bowel sounds Palpation: soft; Negative for tender or guarding Back/Spine no CVA tenderness and normal ROM General Back: Negative for CVA tenderness Cervical Spine: Negative for cervical spine tenderness Thoracic Spine / Upper Back: Negative for thoracic spinal tenderness Lumbar Spine / Lower Back: Negative for lumbar spinal tenderness Sacrum: Negative for tenderness Extremity normal to inspection and full ROM General Extremety ED: Negative for cyanosis or tenderness General Extremity: Negative for cyanosis Neuro oriented x3 and CN's II-XII intact bilaterally Sensorium / Orientation: alert, oriented to person, oriented to place and oriented to time; Negative for orientation impaired, lethargic or stuporous Motor Exam: strength 5/5 throughout Psych mental status grossly normal Appearance: Negative for other Attitude: No agitated Mood & Affect: Negative for depressed, anxious or tearful Skin General Skin Exam: Negative for jaundice or pallor Lesions: no lesions Rashes: no rashes Trauma: Negative for abrasion or laceration MDM MDM MDM Narrative Medical decision making narrative: 53-year-old male has most likely a viral syndrome rule out pneumonia and he looks clinically dehydrated will be treated with IV fluids, Tylenol for his fever screening labs and COVID, flu and RSV screen. Repeat exam patient is doing well. He is received a liter of fluid. He has received Tylenol as temperature is 99.8. He clinically looks better his vitals are more stable. He and his family are comfortable with him being discharged to home his daughter is with him. He has had pneumonia multiple times in the past they are comfortable with him being treated as an outpatient know to return if he is feeling worse. He will be started on Zithromax his first dose given here and then once daily starting tomorrow for 4 more days I will send a prescription to their pharmacy. History & Record Review Discussion w/independent historian: Patient Additional record(s) reviewed:: Prior inpatient record, Prior outpatient record, Prior ED visit and Prior labs Lab Data Attestation: I reviewed the patient's lab results. Lab results narrative: COVID, flu and RSV are all negative. Chest x-ray shows a left lower lobe pneumoNIA. CBC shows an elevated white count 9.7. H&H 14 and 41. Platelets 183. Chemistries show sodium 135 gap 6 normal BUN of 8 creatinine 0.9. Glucose 134. Labs: Laboratory Results - last 24 hr 05/08/23 16:15 WBC 11.7 H RBC 4.69 Hgb 14.1 Hct 41.5 MCV 88.5 MCH 30.1 MCHC 34.0 RDW Std Deviation 40.3 RDW Coeff of Joseph 12.5 Plt Count 183 MPV 10.4 Immature Gran % (Auto) 0.400 Neut % (Auto) 80.7 H Lymph % (Auto) 8.4 L [place] % (Auto) 10.3 H Eos % (Auto) 0.0 Baso % (Auto) 0.2 Absolute Neuts (auto) 9.5 H Absolute Lymphs (auto) 0.99 Nucleated RBC % 0 Sodium 135 L Potassium 3.6 Chloride 103 Carbon Dioxide 26.0 Anion Gap 6 BUN 8 Creatinine 0.92 Estim Creat Clear Calc 78.58 Est GFR (MDRD) Af Amer 110 Est GFR (MDRD) Non-Af 91 BUN/Creatinine Ratio 8.7 L Glucose 134 H Calcium 8.9 Radiography Chest X-Ray - ED: 1 View, Read by ED Physician, Heart, Mediastinum, Bony Structures, Chronic Changes and Left Infiltrate Diagnostic Testing: Clinical Impression(s) from Imaging Studies Chest X-Ray 05/08/23 16:02 IMPRESSION: No acute radiographic abnormalities. Electronically Signed: Gonzalo Caceres MD at 16:17 EST , Chest X-Ray 05/08/23 16:21 IMPRESSION: Left lower lobe pneumonia. Electronically Signed: Gonzalo Caceres MD at 17:20 EST , Chest x-ray, 2 views AP and lateral interpreted both by myself and the radiologist shows a left lower lobe pneumonia. Discharge Plan Triage Chief Complaint: Cold Sx ED Provider: Alexandre Clements Dx/Rx/DC Orders Clinical Impression: Fever, Left lower lobe pneumonia Instructions: ED Fever Control (Adult), ED Pneumonia (Adult) Prescriptions: New azithromycin [Zithromax Z-Rl] 250 mg tablet 250 mg PO DAILY 4 Days Qty: 4 0RF Rx Instructions: start on day 2 of therapy No Action multivitamin [Multiple Vitamins] 1 EACH tablet 1 ea PO DAILY atorvastatin 40 MG tablet 40 mg PO QHS Qty: 30 0RF Rx Instructions: cholesterol aspirin 81 MG tablet 81 mg PO DAILY@0800 0RF Rx Instructions: heart health acetaminophen 325 MG tablet 650 mg PO Q6H PRN PRN (Reason: Pain Score 1-10/Temp > 100.7 F) 0RF Primary Care Provider: Care Physician,No Primary Referrals: Care Physician,No Primary [Primary Care Provider] - 3-5 Days Activity Restrictions/Additional Instructions: Plenty of fluids and rest. Alternate Tylenol and Motrin for fever. Push water, 7-Up and Gatorade. Follow-up with your doctor if not improving or return if worse. Zithromax daily starting tomorrow after lunch with food on your stomach once a day for the next 4 days. Disposition Disposition: Home, Self Care
--- NOTE | 2023-05-08 16:02 | RAD_ITS ---
INDICATION: fever EXAMINATION/TECHNIQUE: X-RAY - XR Chest 1 View COMPARISON: 06/01/2019. FINDINGS: The lungs are clear. Tortuous and calcified thoracic aorta. The heart is not enlarged. No pleural effusion or pneumothorax. Degenerative changes of the thoracic spine. RAD/Chest 1 View (Portable) IMPRESSION: No acute radiographic abnormalities. Electronically Signed: Gonzalo Caceres MD at 16:17 EST ,
--- OUTSIDE RECORDS SUMMARY | 2023-05-08 16:17 | XMS RPT_ITS | CCD ---
Author Name Unknown Address [address] [place] [address] Organization [facility] Care Team Providers Care Air Tube Releaser Name Role Phone Gabriella Magaña RN Unavailable Unavailable STEPH PAGAN Unavailable Unavail able STEPH PAGAN Unavailable Unavail able STEPH PAGAN Unavailable Unavail able Allergies Allergy Classification Reported Allergen(s) Allergy Type Date of Onset Reaction(s) Facility (1 source) Penicillins (Antibiotic); Translations: [PCN] Propensity to adverse reactions (disorder) [facility] Repository Medications Completed/Discontinued Medications Medication Drug Class(es) Dates Sig (Normalized) Sig (Original) Drug Treatment Unknown - unknown (1 source) No information available. Problems Active Problems Problem Classification Problem Date Documented Date Episodic/Chronic Acute cerebrovascular disease (1 source) Cerebrovascular accident; Translations: [Cerebral infarction, unspecified] Onset: 08-27-2016 08-27-2016 Chronic Unclassified (1 source) Unknown / UNK(Unknown) Onset: 07-09-2016 Past or Other Problems Problem Classification Problem Date Documented Da te Episodic/Chronic Unclassified (1 source) CEREBRAL INFARCT EMBO UN Onset: 07-09-2016 Results Test Name Value Interpretation Reference Range Facil ity Encounters Encounter Date Encounter Type Care Provider Facility Start: 07-09-2016 End: 08-15-2016 Ambulatory STEPH PAGAN Facility:[facility] Plan of Treatment Date Care Activity Detail Author Jo potts Work Phone: Payers Date Payer Category Payer Policy ID Unknown [id number] Progress note 04-06-2021 Note Date & Type Note Facility 04-06-2021 Note HNO ID: [id number] Author: Fauzia Yepez APRN.NIGHT AUDITOR Service: ? Author Type: Nurse Practitioner Type: Progress Notes Filed: 04/06/2021 11:23 AM Note Text: Subjective HPI Sadie Stone Jr is a 51 year old male who presents with being sick for the past 2 weeks. He has had cough, headache, chills, bodyaches, fatigue, for the past 2 weeks. He has had an intermittent fever. He has not taken any medication for this at home. He has a history of pneumonia, states, I get it every year for the past 5 or 6 years . 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 Review of Systems Constitutional: Positive for chills, fever and malaise/fatigue. Respiratory: Positive for cough, shortness of breath and wheezing. Cardiovascular: Negative for chest pain. Musculoskeletal: Positive for joint pain and myalgias. Neurological: Positive for headaches. BP 136/86 Pulse 99 Temp 37.2 ?C (99 ?F) Resp 18 Wt 62.1 kg (137 lb) SpO2 98% BMI 19.66 kg/m? PAST MEDICAL HISTORY Diagnosis Date - Depression - Psychiatric disorder - Stroke (HCC) PAST SURGICAL HISTORY Procedure Laterality Date - GASTRIC REPAIR W OMENTAL PATC 2002 ALLERGIES Penicillins MEDICATIONS cefdinir (OMNICEF) 300 mg capsule Take 1 capsule by mouth twice daily for 10 days. azithromycin (ZITHROMAX) 250 mg tablet Take 2 tablets by mouth once daily for 1 day, THEN 1 tablet once daily for 4 days. predniSONE (DELTASONE) 20 mg tablet Take 2 tablets by mouth once daily for 4 days. Take daily with food. albuterol HFA (VENTOLIN HFA) 90 mcg/actuation inhaler Inhale 2 Puffs as instructed every 4 hours as needed. atorvastatin (LIPITOR) 20 mg tablet Take 20 mg by mouth once daily. aspirin, enteric coated (ASPIR-81) 81 mg EC tablet Take 81 mg by mouth once daily. acetaminophen (TYLENOL EXTRA STRENGTH) 500 mg ORAL tablet Take 500 mg by mouth every 6 hours as needed. FAMILY HISTORY Problem Relation Age of Onset - None Mother - None Father - None Sister - None Sister - None Sister - None Brother - None Maternal Grandmother decent - None Maternal Grandfather decent Social History Tobacco Use - Smoking status: Former Smoker Packs/day: 0.00 Years: 0.00 Pack years: 0.00 - Smokeless tobacco: Never Used Substance Use Topics - Alcohol use: No - Drug use: No Objective Physical Exam Vitals and nursing note reviewed. Constitutional: Appearance: He is ill-appearing. Cardiovascular: Rate and Rhythm: Normal rate and regular rhythm. Heart sounds: Normal heart sounds. Pulmonary: Effort: Pulmonary effort is normal. Breath sounds: Examination of the right-upper field reveals wheezing. Examination of the left-upper field reveals wheezing. Examination of the right-lower field reveals wheezing and rales. Examination of the left-lower field reveals wheezing and rales. Wheezing and rales present. Skin: General: Skin is warm and dry. Findings: No erythema or rash. Neurological: Mental Status: He is alert. ASSESSMENT/PLAN: 1. Lower respiratory tract infection - ICD9: 519.8, ICD10: J22 (primary diagnosis) -suspect pneumonia. - CEFDINIR 300 MG CAPSULE - AZITHROMYCIN 250 MG TABLET - XR CHEST 2V FRONTAL/LAT- patient to have this done as soon as possible (xray is closed today) - Offered COVID testing, patient declined. 2. Wheezing - ICD9: 786.07, ICD10: R06.2 - PREDNISONE 20 MG TABLET - ALBUTEROL SULFATE HFA 90 MCG/ACTUATION AEROSOL INHALER - Follow-up with your PCP in 3-5 days if symptoms have not improved or sooner if symptoms worsen - Discussed red flags and need for immediate medical evaluation if any occur. - Discussed supportive care treatment with fluids, rest and analgesia. - Discussed expected course of illness Fauzia Yepez APRN.[facility] Summary Purpose Family History No Family History Records FoundNo Family History Records FoundNo Family History Records FoundNo Family History Records Found Advance Directives No Advanced Directives Records FoundNo Advanced Directives Records FoundNo Advanced Directives Records FoundNo Advanced Directives Records Found Additional Source Comments (unrecognized sect ion and content) No Status Records FoundNo Status Records FoundNo Status Records FoundNo Status Records Found INFORMATION SOURCE (unrecogn ized section and content) DATE CREATED AUTHOR AUTHOR'S ORGANIZ ATION 12/01/2018 [facility] DATE CREATED AUTHOR AUTHOR'S ORGANIZ ATION 11/11/2019 [facility] DATE CREATED AUTHOR AUTHOR'S ORGANIZ ATION 07/05/2021 [facility] FOR RECORDS PERTAINING TO PATIENTS WHO ARE OR HAVE BEEN ENROLLED IN A CHEMICAL DEPENDENCY/SUBSTANCEABUSE PROGRAM, SOME INFORMATION MAY BE OMITTED. This clinical summary was aggregated from multiple sources. Caution should be exercised in using it in the provision of clinical care. This summary normalizes information from multiple sources, and as a consequence, information in this document may materially change the coding, format and clinical context of patient data. In addition, data may be omitted in some cases. CLINICAL DECISIONS SHOULD BE BASED ON THE PRIMARY CLINICAL RECORDS. [employer] [facility]. provides no warranty or guarantee of the accuracy or completeness of information in this document.
[2023-05-08 16:21] LABS: Absolute Lymphocyte Count 0.99 X10^3/uL (0.83-4.51); Absolute Neutrophil Count 9.5 X10^3/uL (2.0-7.7); Basophil# 0.02 X10^3/uL; Basophil% 0.2 % (0-1); Hematocrit 41.5 % (40-54); Hemoglobin 14.1 g/dL (13.0-16.5); Lymphocyte # 0.99 X10^3/ul (0.83-4.51); Lymphocyte % 8.4 % (19-41); Mean Corpuscular Hgb 30.1 pg (27.0-32.0); Mean Corpuscular Volume 88.5 fL (80-94); Mean Platelet Vol. 10.4 fl (6.2-12.0); Monocyte# 1.21 X10^3/uL; Monocyte% 10.3 % (0-10); NRBC Flagged by Analyzer 0 % (0-5); Neutrophil # 9.45 X10^3/uL (2.7-7.7); Neutrophil % 80.7 % (47-70); Platelet Count 183 K/mm3 (150-450); RBC Distribution Width CV 12.5 % (11.6-14.6); RBC Distribution Width SD 40.3 fl (35.1-43.9); Red Blood Count 4.69 M/mm3 (4.6-6.2); White Blood Count 11.7 K/mm3 (4.4-11.0)
--- NOTE | 2023-05-08 16:21 | RAD_ITS ---
INDICATION: fever: add lateral thank you EXAMINATION/TECHNIQUE: X-RAY - XR Chest 1 View COMPARISON: 05/08/2023. FINDINGS: There are retrocardiac air space opacities. Tortuous and calcified thoracic aorta. The heart is not enlarged. No pleural effusion or pneumothorax. Degenerative changes of the thoracic spine. RAD/Chest 1 View (Portable) IMPRESSION: Left lower lobe pneumonia. Electronically Signed: Gonzalo Caceres MD at 17:20 EST ,
[2023-05-08] MEDS: 0.9% Normal Saline (1000mL) 1,000 ML 1000 ML IV (16:28)
[2023-05-08 16:35] LABS: Anion Gap 6 (5-15); BUN 8 mg/dL (7-18); BUN/Creat Ratio 8.7 RATIO (10-20); Calcium,Total 8.9 mg/dL (8.5-10.1); Chloride 103 mmol/L (98-107); Creatinine, Serum 0.92 mg/dL (0.70-1.30); EST Glomerular Filtration Rate 91 mL/min (>60); Est Glom Filt Rate - Afr Amer 110 mL/min (>60); Estimated Creatinine Clearance 78.58 ml/min; Glucose 134 mg/dL (74-106); Potassium 3.6 mmol/L (3.5-5.1); Sodium Level 135 mmol/L (136-145)
[2023-05-08 16:50] VITALS: TEMP 37.7
[2023-05-08] MEDS: Azithromycin 250 MG Tablet 500 MG PO (18:16)
[2023-05-08 18:17] VITALS: BP 140/62; PULSE 87; O2SAT 99
== END 2023-05-08 18:18 | disposition home or self-care (01) ==
PROVIDERS: Emergency Provider Emergency Medicine; Visit Provider Emergency Medicine
DX: J18.9 Pneumonia, unspecified organism (principal); Z87.891 Personal history of nicotine dependence; R50.9 Fever, unspecified; Z86.73 Personal history of transient ischemic attack (TIA), and cerebral infarction without residual deficits
CPT/HCPCS: 71045; 80048; 85025; 87631; 96360; 99284; J7030; A4216

== ENCOUNTER 2023-10-31 04:17 | Emergency (ER) | payer OTHER, SELFPAY ==
[2023-10-31 04:17] VITALS: BP 166/93; PULSE 99; RESP 20; TEMP 38.3; O2SAT 97; BMI 20.6
[2023-10-31 04:22] VITALS: BP 128/62; PULSE 65; RESP 18; TEMP 36.6; O2SAT 94
--- NOTE | 2023-10-31 04:55 | EKG12_ITS ---
Test Reason : FEVER Blood Pressure : / mmHG Vent. Rate : 087 BPM Atrial Rate : 087 BPM P-R Int : 124 ms QRS Dur : 086 ms QT Int : 358 ms P-R-T Axes : 055 048 044 degrees QTc Int : 430 ms Normal sinus rhythm Normal ECG Confirmed by CHAITANYA CHRISTIANSEN MD ([id number]), brands editor ZEINAB DOYLE ([id number]) on 11/03/2023 11:13:32 AM Referred By: MARTINA Confirmed By:CHAITANYA CHRISTIANSEN MD
--- NOTE | 2023-10-31 04:55 | RAD_ITS ---
EXAM: XR CHEST, 2 VIEWS CLINICAL INDICATION: sob, fever TECHNIQUE: Frontal and lateral views of the chest. COMPARISON: 05/08/2023. FINDINGS: LUNGS AND PLEURAL SPACES: Unremarkable. No consolidation or edema. No pneumothorax. No effusion. HEART: Unremarkable. Cardiac silhouette not enlarged. MEDIASTINUM: Central airways and mediastinal contour are unremarkable. BONES/JOINTS: Unremarkable. No acute fracture. SOFT TISSUES: Unremarkable. RAD/Chest PA and Lateral IMPRESSION: No acute cardiopulmonary abnormality. Electronically Signed: Kavon Jackson MD at 6:09 EDT ,
--- NOTE | 2023-10-31 04:57 | EDS_ITS ---
HPI History of Present Illness Chief Complaint: Fever Informant: patient and spouse/S.O. Narrative Narrative: 53-year-old male presenting to the ED for 2 to 3 days of malaise, subjective fevers, headache, myalgias, and some mild dyspnea. When asked if his chest is hurting, he states yes but it feels the same as the rest of the body aches he is having. He states the symptoms started with headache, it was all gradual in onset nothing sudden and severe. He denies any nausea or vomiting. Is having some lower abdominal pain. No diarrhea. No trouble urinating. No rashes that he has noticed. No confusion or neck stiffness. No known sick contacts. No travel out of the area over the country. Has not checked his temperatures. Last time he took anything was some DayQuil about 9 or 10 hours ago. He denies any upper respiratory symptoms, and he cannot qualify the dyspnea whether it is wheezing, breathing fast, etc. He states he does not see anybody for primary care, and therefore takes no medications and has no medical problems that he knows of. [facility] Medical History Stroke Home Medications ?Medication ?Instructions ?Recorded ?Last Taken ?Type albuterol sulfate 90 mcg/actuation 1 - 2 puff inhalation Q4H PRN PRN 10/31/23 Unknown Rx aerosol inhaler (Ventolin HFA) Wheezing ##1 tramadol 50 mg tablet 50 mg PO Q6H PRN pain 3 days #10 10/31/23 Unknown Rx tabs Allergy/AdvReac Type Severity Reaction Status Date / Time Penicillins Allergy Unknown Verified 10/31/23 04:18 Surgical History History of open heart surgery Social History Smoking Status: Former smoker ROS ROS ED Constitutional Constitutional ED: Reports chills, fever(s), malaise and subjective Eyes Eyes: Denies change in vision or diplopia ENT ENT ED: Denies ear pain, nasal congestion, rhinorrhea or sore throat Cardiovascular Cardiovascular: Reports chest pain; Denies palpitations Respiratory/Chest Respiratory/Chest: Reports dyspnea; Denies cough Gastrointestinal Gastrointestinal: Reports abdominal pain; Denies diarrhea, nausea or vomiting Genitourinary Genitourinary ED: Denies dysuria or hematuria Musculoskeletal Musculoskeletal: Reports myalgias; Denies arthralgias, back pain or neck pain Integumentary Denies abscess or rash Neurologic Neurologic: Reports headache(s); Denies paresthesias or weakness Psychiatric Psychiatric: Denies suicidal thoughts EXAM Physical Exam Const Vital Signs: 10/31/23 04:17 10/31/23 04:17 10/31/23 04:22 Temperature 100.9 F H 97.8 F Temperature Source Oral Temporal Pulse Rate 99 65 Respiratory Rate 20 H 18 Respiratory Pattern Normal Blood Pressure 166/93 H 128/62 H Blood Pressure Mean 117 84 Pulse Ox 97 94 Oxygen Delivery Method Room Air 10/31/23 05:02 10/31/23 05:22 10/31/23 06:08 Temperature 97.9 F Temperature Source Temporal Pulse Rate 78 104 H Respiratory Rate 18 13 Respiratory Pattern Normal Blood Pressure 123/82 H Blood Pressure Mean 95 Pulse Ox 96 Oxygen Delivery Method Room Air Room Air 10/31/23 06:17 Temperature Temperature Source Pulse Rate 81 Respiratory Rate 18 Respiratory Pattern Blood Pressure 115/78 Blood Pressure Mean 90 Pulse Ox 96 Oxygen Delivery Method Room Air Positive well nourished and well developed General Appearance ED: well developed and NAD HEENT Reports moist mucous membranes HEENT Narrative: Posterior pharynx clear normal. No sinus tenderness. normocephalic and atraumatic Eyes PERRL and EOMs intact bilaterally Neck full ROM, no lymphadenopathy and supple Resp normal respiratory effort and clear to auscultation bilaterally Cardio regular rate, regular rhythm and no murmurs Rate: Negative for tachycardic GI non-distended GI Narrative: Mild right mid and lower abdominal tenderness without guarding or rebound. Auscultation: normoactive bowel sounds Palpation: soft Back/Spine no CVA tenderness General Back: other FROM Extremity normal to inspection General Extremety ED: Negative for edema, pulses abnormal or tenderness General Extremity: Negative for edema or pulses abnormal Neuro oriented x3, CN's II-XII intact bilaterally, no sensory deficits noted and gait normal Sensorium / Orientation: awake and alert Motor Exam: strength 5/5 throughout Psych mental status grossly normal Skin no rashes or lesions noted and no wounds MDM MDM MDM Narrative Medical decision making narrative: He does have some mild tenderness in the right lower quadrant, making me consider appendicitis in the differential, but given the rest of the history and progression, I think this sounds more like a viral illness. When I mention that, significant other and he states that he had COVID back in May and they agree some of it was similar. His lungs are clear but since he has been dyspneic with a fever obtain into the two-view chest x-ray in addition to screening labs and a COVID/influenza/RSV swab. If he is positive for 1 of those viruses, I think it probably obviates the need for more emergent testing. Also obtaining an EKG and a troponin considering possibility of myocarditis. Cardiac testing is normal, 2-view cxr on my interpretation shows some hyperexpansion but no acute infiltrates, and there is no leukocytosis or bandemia, and his viral swab returned negative. after toradol, he feels a little better and his fever resolved, and other vital signs are normal. Given all this and his RLQ tenderness, I obtained a CT in order to rule out appendicitis. it is normal. I reviewed the images and the report which I agree with; a normal appendix is seen. Therefore, I reassured the patient that I suspect this is all viral. In considering Dengue fever, which has recently been detected in the [place], he denies any recent mosquito bites or travel out of the area recently. I am giving him a dose of dexamethasone in case he has some COPD (improved dyspnea after neb tx), but I do not think he needs antibiotics for anything right now. Advised to follow up with a PCP to whom he is referred and the return if worsening dyspnea. Lab Data Attestation: I reviewed the patient's lab results. Labs: Laboratory Results - last 24 hr 10/31/23 05:00 WBC 7.7 RBC 4.87 Hgb 14.7 Hct 42.9 MCV 88.1 MCH 30.2 MCHC 34.3 RDW Std Deviation 40.0 RDW Coeff of Joseph 12.3 Plt Count 172 MPV 10.5 Immature Gran % (Auto) 0.400 Neut % (Auto) 71.4 H Lymph % (Auto) 12.5 L Power % (Auto) 15.1 H Eos % (Auto) 0.1 Baso % (Auto) 0.5 Absolute Neuts (auto) 5.5 Absolute Lymphs (auto) 0.96 Nucleated RBC % 0 Sodium 134 L Potassium 4.3 Chloride 102 Carbon Dioxide 24.0 Anion Gap 8 BUN 16 Creatinine 1.07 Estim Creat Clear Calc 69.84 Est GFR (MDRD) Af Amer 92 Est GFR (MDRD) Non-Af 76 BUN/Creatinine Ratio 15.0 Glucose 109 H Calcium 9.1 Troponin I High Sens 5 Radiography Diagnostic Testing: Clinical Impression(s) from Imaging Studies Chest X-Ray 10/31/23 04:55 IMPRESSION: No acute cardiopulmonary abnormality. Electronically Signed: Kavon Jackson MD at 6:09 EDT , Abdomen/Pelvis CT 10/31/23 05:53 IMPRESSION: 1. Normal appendix. 2. No acute abdominal pelvic abnormality. Electronically Signed: Kavon Jackson MD at 6:42 EDT Reading Location ID and State: [id number] / [employer] Tel , Service support , Rhythm Strip Rhythm Strip: Sinus Rhythm Rate: 95 Ectopy: None EKG Initial EKG: Attestation: I personally reviewed and interpreted this EKG as follows: Interpretation: Sinus Rhythm and No Acute Injury Pattern Discharge Plan Triage Chief Complaint: Fever ED Provider: Sean Hernandes Dx/Rx/DC Orders Clinical Impression: Acute viral syndrome, Abdominal pain, RLQ Instructions: ED Viral Syndrome (Adult) Prescriptions: New tramadol 50 mg tablet 50 mg PO Q6H PRN (Reason: pain) 3 Days Qty: 10 0RF albuterol sulfate [Ventolin HFA] 90 mcg/actuation HFA aerosol inhaler 1 - 2 puff inhalation Q4H PRN PRN (Reason: Wheezing) Qty: 1 0RF Primary Care Provider: Care Physician,No Primary Referrals: Magdy Cohn MD [Med Staff - Active Staff] - 3-5 Days if not improving Care Physician,No Primary [Primary Care Provider] - Print Language: [place] Disposition Disposition: Home, Self Care
[2023-10-31] MEDS: Ketorolac 30 MG/ML Syringe IV (05:03)
[2023-10-31 05:06] LABS: Absolute Lymphocyte Count 0.96 X10^3/uL (0.83-4.51); Absolute Neutrophil Count 5.5 X10^3/uL (2.0-7.7); Basophil# 0.04 X10^3/uL; Basophil% 0.5 % (0-1); Eosinophil# 0.01 X10^3/uL; Eosinophils% 0.1 % (0-5); Hematocrit 42.9 % (40-54); Hemoglobin 14.7 g/dL (13.0-16.5); Lymphocyte # 0.96 X10^3/ul (0.83-4.51); Lymphocyte % 12.5 % (19-41); Mean Corp Hgb Conc 34.3 g/dL (32-36); Mean Corpuscular Hgb 30.2 pg (27.0-32.0); Mean Corpuscular Volume 88.1 fL (80-94); Mean Platelet Vol. 10.5 fl (6.2-12.0); Monocyte# 1.16 X10^3/uL; Monocyte% 15.1 % (0-10); NRBC Flagged by Analyzer 0 % (0-5); Neutrophil # 5.48 X10^3/uL (2.7-7.7); Neutrophil % 71.4 % (47-70); Platelet Count 172 K/mm3 (150-450); RBC Distribution Width CV 12.3 % (11.6-14.6); Red Blood Count 4.87 M/mm3 (4.6-6.2); White Blood Count 7.7 K/mm3 (4.4-11.0)
[2023-10-31 05:22] VITALS: BP 123/82; PULSE 78; RESP 18; TEMP 36.6; O2SAT 96
[2023-10-31 05:46] LABS: Anion Gap 8 (5-15); BUN 16 mg/dL (7-18); Calcium,Total 9.1 mg/dL (8.5-10.1); Chloride 102 mmol/L (98-107); Creatinine, Serum 1.07 mg/dL (0.70-1.30); EST Glomerular Filtration Rate 76 mL/min (>60); Est Glom Filt Rate - Afr Amer 92 mL/min (>60); Estimated Creatinine Clearance 69.84 ml/min; Glucose 109 mg/dL (74-106); Potassium 4.3 mmol/L (3.5-5.1); Sodium Level 134 mmol/L (136-145); Troponin-I HS 5 pg/mL (3.0-78.0)
--- NOTE | 2023-10-31 05:53 | CT_ITS ---
EXAM: CT ABDOMEN AND PELVIS WITH INTRAVENOUS CONTRAST CLINICAL INDICATION: RLQ pain, fever TECHNIQUE: Helically acquired images were obtained of the abdomen and pelvis with intravenous contrast. This CT exam was performed using one or more of the following dose reduction techniques: automated exposure control, adjustment of the mA and/or kV according to patient size, and/or use of iterative reconstruction technique. CONTRAST: IV 100mL Isovue-370 RADIATION DOSE: CTDIvol = 9.67 mGy, DLP = 313.55 mGy-cm COMPARISON: No relevant prior studies available. FINDINGS: LOWER THORAX: Unremarkable. Lung bases are clear. No cardiomegaly. No significant pericardial effusion. ABDOMEN: LIVER: Unremarkable. Homogeneous. No focal mass. GALLBLADDER AND BILE DUCTS: Unremarkable. No calcified gallstones. No gallbladder distention or wall edema. No intra- or extrahepatic biliary ductal dilation. PANCREAS: Unremarkable. No focal cystic or solid mass. SPLEEN: Unremarkable. Normal size without focal cystic or solid mass. ADRENALS: Unremarkable. No nodules. KIDNEYS AND URETERS: Unremarkable. Normal renal size and position. No hydronephrosis. STOMACH AND BOWEL: Unremarkable. No stomach or bowel distention. No focal inflammatory change. PELVIS: APPENDIX: Normal appendix. BLADDER: Unremarkable. REPRODUCTIVE: Unremarkable as visualized. No mass. ABDOMEN and PELVIS: INTRAPERITONEAL SPACE: Unremarkable. No ascites or other fluid collection. No free air. BONES/JOINTS: Unremarkable. No suspicious lytic or blastic abnormality. SOFT TISSUES: Unremarkable. No discrete abdominal or pelvic wall hernia. VASCULATURE: Unremarkable. Abdominal aorta is non-dilated. LYMPH NODES: Unremarkable. No enlarged lymph nodes. CT/Abdomen/Pelvis W IV Cont ONLY IMPRESSION: 1. Normal appendix. 2. No acute abdominal pelvic abnormality. Electronically Signed: Kavon Jackson MD at 6:42 EDT ,
[2023-10-31] MEDS: Albuterol 2.5 MG/3 ML VIAL.NEB. INHALATION (06:07)
[2023-10-31 06:08] VITALS: PULSE 104; RESP 13
[2023-10-31 06:17] VITALS: BP 115/78; PULSE 81; RESP 18; O2SAT 96
[2023-10-31] MEDS: dexAMETHasone 10 MG/ML Vial 6 MG IV (07:15)
[2023-10-31 07:20] VITALS: BP 119/85; PULSE 80; RESP 22; TEMP 37; O2SAT 99
== END 2023-10-31 07:26 | disposition home or self-care (01) ==
PROVIDERS: Emergency Provider Emergency Medicine; Visit Provider Emergency Medicine
DX: B34.9 Viral infection, unspecified (principal); M79.10 Myalgia, unspecified site; R10.31 Right lower quadrant pain; Z87.891 Personal history of nicotine dependence; Z86.73 Personal history of transient ischemic attack (TIA), and cerebral infarction without residual deficits; R51.9 Headache, unspecified; R07.9 Chest pain, unspecified; R06.00 Dyspnea, unspecified
CPT/HCPCS: 71046; 74177; 80048; 84484; 85025; 87631; 93005; 94640; 96374; 96375; 99283; Q9967; A4216

== ENCOUNTER 2023-11-04 15:10 | Observation (INO) | payer OTHER, SELFPAY ==
[2023-11-04] VITALS (11 sets, daily range): BP systolic 117–136; BP diastolic 74–84; PULSE 88–123; RESP 15–28; TEMP 36.4–37.1; O2SAT 92–98; BMI 19.8; BMI 19.1
--- NOTE | 2023-11-04 15:27 | EKG12_ITS ---
Test Reason : CP/SOB Blood Pressure : / mmHG Vent. Rate : 104 BPM Atrial Rate : 104 BPM P-R Int : 116 ms QRS Dur : 086 ms QT Int : 316 ms P-R-T Axes : 035 031 049 degrees QTc Int : 415 ms Sinus tachycardia Otherwise normal ECG Confirmed by ЕЛЕНА HANNON, CHAITANYA ([id number]), brick molder hand VIBHA MERCEDES ([id number]) on 11/05/2023 8:58:12 AM Referred By: LUDY/SAPPHIRE Confirmed By:CHAITANYA CHRISTIANSEN MD
--- NOTE | 2023-11-04 15:29 | EX.ED.DYSGE1 ---
HPI History of Present Illness Chief Complaint: Shortness of Breath Informant: patient Onset/Context/Timing Onset: Days Context: Gradual Onset Narrative Narrative: Patient present secondary to shortness of breath with chest pain to the left, cough, fever. Patient was seen on the and had a workup consistent with viral syndrome. He has been taking tramadol for pain and using an albuterol MDI. He states his symptoms continue to progress. He complains of a severe headache. He has had decreased p.o. intake and increasing weakness. Patient denies history of COPD or asthma. He was a smoker but quit in 2017. [facility] Medical History Stroke Home Medications ?Medication ?Instructions ?Recorded ?Last Taken ?Type albuterol sulfate 90 mcg/actuation 1 - 2 puff inhalation Q4H PRN PRN 10/31/23 Unknown Rx aerosol inhaler (Ventolin HFA) Wheezing ##1 tramadol 50 mg tablet 50 mg PO Q6H PRN pain 3 days #10 10/31/23 Unknown Rx tabs Allergy/AdvReac Type Severity Reaction Status Date / Time Penicillins Allergy Unknown Verified 11/04/23 15:14 Surgical History History of open heart surgery Social History Smoking Status: Former smoker ROS ROS ED Constitutional Constitutional ED: Reports fever(s); Denies chills Eyes Eyes: Denies change in vision or discharge from eye(s) ENT ENT ED: Denies discharge from eye(s), rhinorrhea or sore throat Cardiovascular Cardiovascular: Reports chest pain; Denies palpitations Respiratory/Chest Respiratory/Chest: Reports cough and dyspnea Gastrointestinal Gastrointestinal: Reports other Details: Decreased p.o. intake ; Denies abdominal pain, diarrhea, nausea or vomiting Genitourinary Genitourinary ED: Denies dysuria Musculoskeletal Musculoskeletal: Denies back pain or extremity pain Integumentary Denies Abrasions or rash Neurologic Neurologic: Reports headache(s) and weakness Psychiatric Psychiatric: Denies anxiety or depression Allergic/Immunologic Allergic/Immunologic ED: Denies lip swelling or urticaria EXAM Physical Exam Const Vital Signs: 11/04/23 15:10 11/04/23 15:14 11/04/23 15:31 Temperature 98.3 F 98.8 F Temperature Source Oral Oral Pulse Rate 114 H 112 H Respiratory Rate 28 H 20 H Respiratory Effort Respiratory Depth Respiratory Pattern Blood Pressure 117/84 H 117/84 H Blood Pressure Mean 95 95 Pulse Ox 96 96 Oxygen Delivery Method Room Air Room Air Room Air 11/04/23 15:33 11/04/23 15:42 11/04/23 15:48 Temperature Temperature Source Pulse Rate 112 H 120 H Respiratory Rate 20 H 16 Respiratory Effort Short of Breath Respiratory Depth Shallow Respiratory Pattern Normal Tachypnea Blood Pressure Blood Pressure Mean Pulse Ox Oxygen Delivery Method Room Air 11/04/23 16:14 11/04/23 17:00 Temperature 98.8 F 98.8 F Temperature Source Oral Oral Pulse Rate 123 H 119 H Respiratory Rate 15 19 H Respiratory Effort Respiratory Depth Respiratory Pattern Blood Pressure 136/84 H 125/75 H Blood Pressure Mean 101 91 Pulse Ox 93 92 Oxygen Delivery Method Room Air Room Air Positive well nourished and well developed General Appearance ED: well developed HEENT Reports dry mucous membranes Mouth ED: Yes dry mucous membranes Mouth: dry mucous membranes Eyes EOMs intact bilaterally Chest Wall inspection of chest normal and palpation of chest normal Resp Resp Narrative: Patient is tachypneic with rales bilaterally. Cardio Rate: tachycardic GI non-tender Palpation: soft Extremity normal to inspection Neuro oriented x3 Psych mental status grossly normal MDM MDM MDM Narrative Medical decision making narrative: Patient was on stave bolt equalizer. IV line initiated. Sepsis workup initiated. Insert EKG chest x-ray obtained to evaluate for acute lung pathology, cardiac size, or mediastinal abnormality. Patient given Tylenol for fever and aerosols initiated. History & Record Review Discussion w/independent historian: Patient and Significant other Additional record(s) reviewed:: Prior ED visit and Prior labs Lab Data Attestation: I reviewed the patient's lab results. Labs: Laboratory Results - last 24 hr 11/04/23 11/04/23 15:30 16:55 WBC 8.8 RBC 4.98 Hgb 14.9 Hct 42.9 MCV 86.1 MCH 29.9 MCHC 34.7 RDW Std Deviation 37.8 RDW Coeff of Joseph 12.0 Plt Count 175 MPV 10.4 Immature Gran % (Auto) 0.200 Neut % (Auto) 81.0 H Lymph % (Auto) 9.1 L [place] % (Auto) 9.0 Eos % (Auto) 0.5 Baso % (Auto) 0.2 Absolute Neuts (auto) 7.1 Absolute Lymphs (auto) 0.80 L Nucleated RBC % 0 PT 14.5 INR 1.1 APTT 32.1 Sodium 129 L Potassium 3.9 Chloride 95 L Carbon Dioxide 27.0 Anion Gap 7 BUN 13 Creatinine 0.90 Estim Creat Clear Calc 80.09 Est GFR (MDRD) Af Amer 112 Est GFR (MDRD) Non-Af 93 BUN/Creatinine Ratio 14.4 Glucose 110 H Lactic Acid 1.8 Calcium 9.2 Total Bilirubin 0.70 AST 13 L ALT 13 L Alkaline Phosphatase 69 Troponin I High Sens 5 B-Natriuretic Peptide 4.5 Total Protein 7.6 Albumin 3.5 Globulin 4.1 Albumin/Globulin Ratio 0.9 Urine Color Yellow Urine Clarity Clear Urine pH 7.0 Ur Specific [place] 1.010 Urine Protein 15 H Urine Glucose (UA) Normal Urine Ketones 50 H Urine Occult Blood Negative Urine Nitrite Negative Urine Bilirubin Negative Urine Urobilinogen 4 H Ur Leukocyte Esterase Negative Radiography Chest X-Ray - ED: 1 View, Read by ED Physician and Left Infiltrate Diagnostic Testing: Clinical Impression(s) from Imaging Studies Chest X-Ray 11/04/23 15:35 IMPRESSION: Probable interstitial pneumonia in left lower lobe. Clinical correlation recommended Electronically Signed: Tevin Hawley MD at 16:21 EDT Reading Location ID and State: [address] [place] [address] Tel , Service support , EKG Initial EKG: Attestation: I personally reviewed and interpreted this EKG as follows: Interpretation: Sinus Tachycardia (Sinus tachycardia at 104. No acute ischemia.) Treatment and Re-Evaluation :: CBC was normal white count at 8.8 with 81% neutrophils. Hemoglobin is 14.9. Chemistry studies significant for a sodium of 129. On the his sodium was 134. BUN and creatinine are normal. LFTs are normal. Troponin is normal at 5, BNP is 4.5, lactic acid is normal at 1.8. Portable chest x-ray per my interpretation reveals interval development of a left lower lobe infiltrate. EKG is sinus tachycardia at 104 with a QTc of 415. Patient is given a dose of IV Levaquin given his allergy to penicillins. Swab for COVID, influenza, and RSV is negative. Urinalysis reveals 50 ketones with no leukocyte esterase and no nitrites. On repeat evaluation patient is tachycardic with heart rates between 115 and 120. Lung sounds are improved. He remains on room air. He is sweaty and his sheets are saturated. I do feel patient would benefit from hospitalization for IV antibiotics and treatments. I will speak with the hospitalist. Discharge Plan Triage Chief Complaint: Shortness of Breath Other Complaint: Cough ED Provider: Tanisha Holden Dx/Rx/DC Orders Clinical Impression: Pneumonia Prescriptions: No Action tramadol 50 mg tablet 50 mg PO Q6H PRN (Reason: pain) 3 Days Qty: 10 0RF albuterol sulfate [Ventolin HFA] 90 mcg/actuation HFA aerosol inhaler 1 - 2 puff inhalation Q4H PRN PRN (Reason: Wheezing) Qty: 1 0RF Primary Care Provider: Care Physician,No Primary Referrals: Care Physician,No Primary [Primary Care Provider] - Print Language: Divehi Disposition Disposition: Acute Care Hospital [facility]
[2023-11-04] MEDS: Albuterol 2.5 MG/3 ML VIAL.NEB. INHALATION ×2 (15:31→15:41)
[2023-11-04] MEDS: Ipratropium/Albuterol Sulfate 3 ML AMPUL.NEB INHALATION (15:31)
--- NOTE | 2023-11-04 15:35 | RAD_ITS ---
STUDY: X-RAY CHEST REASON FOR EXAM: Male, 53 years old. cough TECHNIQUE: AP portable COMPARISON: October 31, 2023. FINDINGS: Reticulonodular interstitial infiltrate in left lower lobe possibly inflammatory.. There is no demonstrated pleural abnormality. Surgical clips in the right lower anterior chest wall Normal size heart. Normal mediastinum and viola. Normal visualized pulmonary arteries. Normal visualized aortic arch and descending thoracic aorta. Normal visualized thoracic spine. Normal visualized ribs, clavicles, and shoulders. There is no demonstrated abnormality of the visualized soft tissue structures of the upper abdomen. RAD/Chest 1 View (Portable) IMPRESSION: Probable interstitial pneumonia in left lower lobe. Clinical correlation recommended Electronically Signed: Tevin Hawley MD at 16:21 EDT ,
[2023-11-04] MEDS: Acetaminophen 500 MG Tablet 1000 MG PO (15:38)
[2023-11-04] MEDS: 0.9% Normal Saline (1000mL) 1,000 ML 150 ML IV (15:38)
[2023-11-04 15:42] LABS: Absolute Neutrophil Count 7.1 X10^3/uL (2.0-7.7); Basophil# 0.02 X10^3/uL; Basophil% 0.2 % (0-1); Eosinophil# 0.04 X10^3/uL; Eosinophils% 0.5 % (0-5); Hematocrit 42.9 % (40-54); Hemoglobin 14.9 g/dL (13.0-16.5); Lymphocyte % 9.1 % (19-41); Mean Corp Hgb Conc 34.7 g/dL (32-36); Mean Corpuscular Hgb 29.9 pg (27.0-32.0); Mean Corpuscular Volume 86.1 fL (80-94); Mean Platelet Vol. 10.4 fl (6.2-12.0); Monocyte# 0.79 X10^3/uL; NRBC Flagged by Analyzer 0 % (0-5); Neutrophil # 7.08 X10^3/uL (2.7-7.7); Platelet Count 175 K/mm3 (150-450); RBC Distribution Width SD 37.8 fl (35.1-43.9); Red Blood Count 4.98 M/mm3 (4.6-6.2); White Blood Count 8.8 K/mm3 (4.4-11.0)
[2023-11-04 15:50] LABS: International Normalized Ratio 1.1; Prothrombin Time (Protime)PT. 14.5 SECONDS (11.7-14.9)
[2023-11-04 15:51] LABS: Partial Thromboplast Time 32.1 Seconds (24.1-36.2)
[2023-11-04 16:11] LABS: ALB/GLOB Ratio 0.9 RATIO (0.9-2.4); AST(SGOT) 13 U/L (15-37); Alanine Aminotransfer ALT/SGPT 13 U/L (16-61); Albumin, Serum 3.5 g/dL (3.2-5.0); Alkaline Phosphatase 69 U/L (45-117); Anion Gap 7 (5-15); BNP,B-Type NATRIURETIC PEPTIDE 4.5 pg/mL (0-100); BUN 13 mg/dL (7-18); BUN/Creat Ratio 14.4 RATIO (10-20); Calcium,Total 9.2 mg/dL (8.5-10.1); Chloride 95 mmol/L (98-107); EST Glomerular Filtration Rate 93 mL/min (>60); Est Glom Filt Rate - Afr Amer 112 mL/min (>60); Estimated Creatinine Clearance 80.09 ml/min; Globulin 4.1 g/dL (2.2-4.2); Glucose 110 mg/dL (74-106); Potassium 3.9 mmol/L (3.5-5.1); Protein, Total 7.6 g/dL (6.4-8.2); Sodium Level 129 mmol/L (136-145); Troponin-I HS 5 pg/mL (3.0-78.0)
[2023-11-04 16:16] LABS: Lactic Acid 1.8 mmol/L (0.4-1.9)
[2023-11-04] MEDS: levoFLOXacin IV 750 MG in Empty Viaflex Q24 100 MG IV (16:19)
[2023-11-04 17:00] LABS: Bacteria 0 SEEN /hpf (None Seen); Mucous, Urine 0 SEEN /hpf (<or=2+); Red Blood Cells-Urine 0 SEEN /hpf (0-5); Squamous Epithelial Cells - UA 0 SEEN /hpf (0-5); White Blood Cells 0 SEEN /hpf (0-5)
[2023-11-04 17:02] LABS: Color, Urine Yellow (Yellow); Glucose, Dipstick Normal (Normal); Ketone-Dipstick 50 mg/dl (Negative); Leukocyte Esterase-Dipstick Negative /ul (Negative); Nitrite-Dipstick Negative (Negative); Occult Blood-Urine Negative /ul (Negative); Protein-Dipstick 15 mg/dl (Negative); Urine Bilirubin Dipstick Negative (Negative); Urine Clarity Clear (Clear); Urine Urobilinogen 4 mg/dl (Normal)
--- NOTE | 2023-11-04 17:38 | PCM.HP.STD ---
HPI - General General Date of Admission: 11/04/23 Date of Service: 11/04/23 Chief Complaint: Dyspnea, cough, fever, pleuritic chest pain. HPI Narrative The patient is a 53 y/o M w/ PMHx: Hx CVA (Embolic R MCA territory) w/ PFO noted upon evaluation and negative hypercoaguable work-up with still ongoing mild left hand residual weakness otherwise no deficits, Former Tobacco use, HLD, Hx prior esophageal food impaction with surgical intervention however patient had complication with perforation and also lung injury requiring lung surgery and esophageal surgery with prolonged ICU stay who presents to the [facility] ED on 11/04/23 with onset of dyspnea, worse with exertion with left-sided pleuritic chest discomfort as well as cough, fatigue and malaise in addition to fever with recent evaluation on 10/31/23 with workup consistent with a viral syndrome with ongoing usage of albuterol and tramadol for discomfort however his symptoms have confusion continued with now onset of significant headache, decreased oral intake and increasing weakness prompting return for further evaluation. Patient reports poor appetite but no nausea or emesis, upper respiratory type symptoms initially now more so significant cough, chest congestion and dyspnea as well as diaphoresis and fevers. Initially did have severe body aches but those have abated. He does report generalized headache now which she did not have prior. He does report that he took himself unfortunately off of all of his medications including the aspirin and statin for his previous stroke history. He does report occasional wheezing and dyspnea but has never been tested for COPD. Workup in the ED included T98.3, heart rate 114, BP 117/84, respiratory rate 28, 96% on room air with most recent repeat evaluation T98.8, heart rate 119, BP 125/75, respiratory rate 19, 92% on room air, CBC with WC 8.8, hemoglobin 14.9, platelet 175 without left shift with noted lymphopenia, unremarkable coags, CMP with sodium 129, chloride 95, glucose 110, AST/ALT 13/13 otherwise hepatic profile unremarkable, troponin 5, BNP 4.5, lactic acid 1.8, urinalysis not marked appearing, chest x-ray with probable interstitial pneumonia left lower lobe, blood culture x 2 pending per ED, rapid SARS COVID/influenza/RSV PCR negative, EKG with sinus tachycardia with QTc 415. In the ED patient ministered maintenance IV fluids, Tylenol 1000 mg p.o. x 1, DuoNeb therapy and Levaquin 750 mg p.o. x 1. [facility] Medical History Esophageal obstruction due to food impaction Former tobacco use HLD (hyperlipidemia) Patent foramen ovale History of CVA (cerebrovascular accident) Home Medications ?Medication ?Instructions ?Recorded ?Last Taken ?Type albuterol sulfate 90 mcg/actuation 1 - 2 puff inhalation Q4H PRN PRN 10/31/23 Unknown Rx aerosol inhaler (Ventolin HFA) Wheezing ##1 tramadol 50 mg tablet 50 mg PO Q6H PRN pain 3 days #10 10/31/23 Unknown Rx tabs Allergy/AdvReac Type Severity Reaction Status Date / Time Penicillins Allergy Unknown Verified 11/04/23 15:14 Family History (Updated 11/04/23 @ 18:[address] Aleta Slade MD) Father Diabetes Mother No problems noted. Surgical History History of lung surgery History of esophageal surgery Social History (Updated 11/04/23 @ 18:[address] Aleta Slade MD) household members: spouse Smoking Status: Former smoker how long ago did patient quit smoking: Quit 2017, smoked 1 pk/1.5 days since teen until quit. alcohol intake: never substance use type: does not use ROS ROS Narrative Admission Review of Systems: CONSTITUTIONAL: No weight loss, + fever, chills, weakness or fatigue. HEENT: + Headache, cough, congestion. Eyes: No visual loss, blurred vision, double vision or yellow sclerae. Ears, Nose, Throat: No hearing loss, sneezing. SKIN: No rash or itching, lesions, wounds. CARDIOVASCULAR: + Pleuritic chest discomfort. No palpitations, edema, orthopnea, syncopal events. RESPIRATORY: + Dyspnea, cough with occasional productive sputum, occasional wheezing. No hemoptysis. GASTROINTESTINAL: + Anorexia. No nausea, vomiting or diarrhea, abdominal pain, melena, BRBPR. GENITOURINARY: No dysuria, frequency, urgency or retention. NEUROLOGICAL: + Headache, residual left hand weakness following previous history of stroke dizziness, syncope, paralysis, ataxia, numbness or tingling in the extremities, change in bowel or bladder control, seizure. MUSCULOSKELETAL: + muscle, back pain, joint pain or stiffness. HEMATOLOGIC: No anemia, bleeding or bruising. LYMPHATICS: No enlarged nodes. No history of splenectomy. PSYCHIATRIC: No history of depression or anxiety. ENDOCRINOLOGIC: + Reported sweating, cold and heat intolerance. No polyuria or polydipsia. ALLERGIES: No history of asthma, hives, eczema or rhinitis. Vital Signs Vital Signs Vital Signs: 11/04/23 15:10 11/04/23 15:14 11/04/23 15:31 Temperature 98.3 F 98.8 F Temperature Source Oral Oral Pulse Rate 114 H 112 H Respiratory Rate 28 H 20 H Respiratory Effort Respiratory Depth Respiratory Pattern Blood Pressure 117/84 H 117/84 H Blood Pressure Mean 95 95 Pulse Ox 96 96 Oxygen Delivery Method Room Air Room Air Room Air 11/04/23 15:33 11/04/23 15:42 11/04/23 15:48 Temperature Temperature Source Pulse Rate 112 H 120 H Respiratory Rate 20 H 16 Respiratory Effort Short of Breath Respiratory Depth Shallow Respiratory Pattern Normal Tachypnea Blood Pressure Blood Pressure Mean Pulse Ox Oxygen Delivery Method Room Air 11/04/23 16:14 11/04/23 17:00 Temperature 98.8 F 98.8 F Temperature Source Oral Oral Pulse Rate 123 H 119 H Respiratory Rate 15 19 H Respiratory Effort Respiratory Depth Respiratory Pattern Blood Pressure 136/84 H 125/75 H Blood Pressure Mean 101 91 Pulse Ox 93 92 Oxygen Delivery Method Room Air Room Air Weight Weight: 134 lb 9.6 oz Body Mass Index (BMI) 19.8 Physical Exam Narrative Physical Examination: General: Awake, alert, oriented x 3 and cooperative, laying in the ED bed, fatigued and ill-appearing. Skin: Normal color, normal turgor, no icterus, no cyanosis. HEENT: AT/NC, EOMI, PERRLA, dry MM, no carotid bruits or JVD noted. Lungs: Diminished, greater bases, left greater than right, coarse, rhonchorous left base, occasional end expiratory wheeze, mild increased respiratory rate but no distress. Heart: Tachycardic with regular rhythm; no gallop, rub audible. Abdomen: Soft, NTTP, ND, mildly hyperactive BS, no appreciated HSM. Extremities: No cyanosis, clubbing, or edema. 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 Results Lab / Micro Data 11/04/23 15:30 11/04/23 15:30 Labs: Laboratory Results - last 24 hr 11/04/23 15:30: WBC 8.8, RBC 4.98, Hgb 14.9, Hct 42.9, MCV 86.1, MCH 29.9, MCHC 34.7, RDW Std Deviation 37.8, RDW Coeff of Joseph 12.0, Plt Count 175, MPV 10.4, Immature Gran % (Auto) 0.200, Neut % (Auto) 81.0 H, Lymph % (Auto) 9.1 L, [place] % (Auto) 9.0, Eos % (Auto) 0.5, Baso % (Auto) 0.2, Absolute Neuts (auto) 7.1, Absolute Lymphs (auto) 0.80 L, Nucleated RBC % 0, PT 14.5, INR 1.1, APTT 32.1, Sodium 129 L, Potassium 3.9, Chloride 95 L, Carbon Dioxide 27.0, Anion Gap 7, BUN 13, Creatinine 0.90, Estim Creat Clear Calc 80.09, Est GFR (MDRD) Af Amer 112, Est GFR (MDRD) Non-Af 93, BUN/Creatinine Ratio 14.4, Glucose 110 H, Lactic Acid 1.8, Calcium 9.2, Total Bilirubin 0.70, AST 13 L, ALT 13 L, Alkaline Phosphatase 69, Troponin I High Sens 5, B-Natriuretic Peptide 4.5, Total Protein 7.6, Albumin 3.5, Globulin 4.1, Albumin/Globulin Ratio 0.9 11/04/23 16:55: Urine Color Yellow, Urine Clarity Clear, Urine pH 7.0, Ur Specific [place] 1.010, Urine Protein 15 H, Urine Glucose (UA) Normal, Urine Ketones 50 H, Urine Occult Blood Negative, Urine Nitrite Negative, Urine Bilirubin Negative, Urine Urobilinogen 4 H, Ur Leukocyte Esterase Negative Micro: Microbiology 11/04/23 15:44 Mucosa - Nose SARS-CoV-2, Influenza & RSV (PCR) - Final Imaging Radiology Impression Chest X-Ray 11/04/23 15:35 IMPRESSION: Probable interstitial pneumonia in left lower lobe. Clinical correlation recommended Electronically Signed: Tevin Hawley MD at 16:21 EDT Reading Location ID and State: [address] [place] [address] Tel , Service support , Assessment & Plan Assessment/Plan (1) Pneumonia: (2) Hypoxemia: PLAN: Plan The patient is a 53 y/o M w/ PMHx: Hx CVA (Embolic R MCA territory) w/ PFO noted upon evaluation and negative hypercoaguable work-up, Former Tobacco use, HLD, Hx prior esophageal food impaction with surgical intervention however patient had complication with perforation and also lung injury requiring lung surgery and esophageal surgery with prolonged ICU stay who presents to the [facility] ED on 11/04/23 with onset of dyspnea, worse with exertion with left-sided pleuritic chest discomfort as well as cough, fatigue and malaise in addition to fever with recent evaluation on 10/31/23 with workup consistent with a viral syndrome with ongoing usage of albuterol and tramadol for discomfort however his symptoms have confusion continued with now onset of significant headache, decreased oral intake and increasing weakness prompting return for further evaluation. #1. Acute Hypoxia (low 90s), Cough, Dyspnea, Left sided pleuritic chest discomfort secondary to Acute LLL Pneumonia with suspected recent Acute Viral Syndrome and now possible superimposed bacterial PNA, concurrent possible Underlying COPD: Will admit to MS telemetry, maintain on oxygen with wean as tolerated to room air, continue ATC budesonide therapy, PRN albuterol, maintain on IV Rocephin and Azithromycin, HOB, IS parameters w/ pending sputum cultures, full respiratory viral panel and urine antigens. Bld cx x 2 obtained in the ED. very concerned of possible underlying COPD thus recommended once patient resolution of acute pneumonia presentation would benefit from outpatient pulmonary function assessment. #2. Hx CVA (Embolic R MCA territory): Patient stroke presentation with left sided weakness with noted several evaluations for stroke with eventual diagnosis of a right MCA territory infarct on most recent evaluation at [facility] with echocardiogram at that time with evidence of a PFO, negative hypercoagulable workup and diagnosis of hyperlipidemia with no specific hypertensive disease with tobacco use at that time with cessation recommendation. Patient unfortunately discontinued all of his medications therefore after lengthy discussion and patient understanding the importance will reinitiate baby aspirin and statin therapy. #3. Prior history of esophageal impaction with unfortunate perforation, lung injury: Patient with significant injury during intervention for reported food impaction, noted history of esophageal perforation and possibly lung injury with perforation, required significant intervention including lung surgery and esophageal repair with prolonged ICU stay. #4. Former Tobacco Abuse: Encouraged continued tobacco cessation. #5. Hyperlipidemia: We will continue patient on statin therapy. #6. DVT prophylaxis: Lovenox. Charges/Coding Visit Charges Inpatient E&M: 70332 Init Hosp L3
[2023-11-04] MEDS: 0.9% Normal Saline (1000mL) 1,000 ML 125 ML IV (19:49)
[2023-11-04] MEDS: Budesonide Respules 0.5 MG/2 ML AMPUL.NEB. INHALATION (20:37)
[2023-11-04] MEDS: LORazepam 2 MG/ML Syringe 0.5 MG IV (21:44)
[2023-11-04] MEDS: Atorvastatin Calcium 80 MG Tablet PO (21:44)
[2023-11-05 01:04] VITALS: BMI 19.1
[2023-11-05] MEDS: Acetaminophen 325 MG Tablet 650 MG PO (01:47)
[2023-11-05 01:53] VITALS: BP 130/84; PULSE 109; RESP 18; TEMP 37.7; O2SAT 95
[2023-11-05 03:39] VITALS: BP 115/80; PULSE 90; RESP 18; TEMP 36.6; O2SAT 95
[2023-11-05] MEDS: 0.9% Normal Saline (1000mL) 1,000 ML 125 ML IV (03:40)
[2023-11-05 06:39] LABS: Absolute Lymphocyte Count 0.97 X10^3/uL (0.83-4.51); Absolute Neutrophil Count 6.2 X10^3/uL (2.0-7.7); Basophil# 0.02 X10^3/uL; Basophil% 0.2 % (0-1); Eosinophil# 0.05 X10^3/uL; Eosinophils% 0.6 % (0-5); Hematocrit 37.6 % (40-54); Hemoglobin 13.1 g/dL (13.0-16.5); Lymphocyte # 0.97 X10^3/ul (0.83-4.51); Lymphocyte % 11.8 % (19-41); Mean Corp Hgb Conc 34.8 g/dL (32-36); Mean Corpuscular Volume 86.2 fL (80-94); Mean Platelet Vol. 10.1 fl (6.2-12.0); Monocyte# 0.97 X10^3/uL; Monocyte% 11.8 % (0-10); NRBC Flagged by Analyzer 0 % (0-5); Neutrophil # 6.22 X10^3/uL (2.7-7.7); Neutrophil % 75.4 % (47-70); Platelet Count 164 K/mm3 (150-450); Red Blood Count 4.36 M/mm3 (4.6-6.2); White Blood Count 8.3 K/mm3 (4.4-11.0)
[2023-11-05] MEDS: Budesonide Respules 0.5 MG/2 ML AMPUL.NEB. INHALATION ×2 (07:08→18:59)
[2023-11-05 07:09] LABS: ALB/GLOB Ratio 0.7 RATIO (0.9-2.4); AST(SGOT) 11 U/L (15-37); Alanine Aminotransfer ALT/SGPT 11 U/L (16-61); Albumin, Serum 2.7 g/dL (3.2-5.0); Alkaline Phosphatase 56 U/L (45-117); Anion Gap 5 (5-15); BUN 9 mg/dL (7-18); BUN/Creat Ratio 10.9 RATIO (10-20); Calcium,Total 8.3 mg/dL (8.5-10.1); Chloride 104 mmol/L (98-107); Creatinine, Serum 0.83 mg/dL (0.70-1.30); EST Glomerular Filtration Rate 102 mL/min (>60); Est Glom Filt Rate - Afr Amer 124 mL/min (>60); Estimated Creatinine Clearance 83.35 ml/min; Globulin 3.7 g/dL (2.2-4.2); Glucose 107 mg/dL (74-106); Potassium 3.6 mmol/L (3.5-5.1); Protein, Total 6.4 g/dL (6.4-8.2); Sodium Level 136 mmol/L (136-145)
[2023-11-05 08:07] VITALS: O2SAT 96
[2023-11-05 09:00] VITALS: BP 122/87; PULSE 90; RESP 16; TEMP 37.5; O2SAT 95
[2023-11-05] MEDS: Ceftriaxone 1 GM/50 ML BAG IV (09:23)
[2023-11-05] MEDS: Aspirin 81 MG TAB.CHEW PO (09:25)
[2023-11-05] MEDS: Enoxaparin 40 MG/0.4 ML Syringe SC (09:25)
[2023-11-05] MEDS: Azithromycin 500 MG in Dextrose 5%-Water (250mL Bag) 250 ML 250 MG IV (10:01)
--- NOTE | 2023-11-05 10:52 | PN_ITS ---
Subjective Subjective Patient seen and examined. He said he felt much better today. He denied any cough, chest pain, palpitations, dizziness, nausea or vomiting or any other symptoms. He feels like his breathing is improving. He did have a slight fever of 99.5 Fahrenheit this morning though he remains on room air. Objective Data Objective Data Vital Signs: Vital Signs Temp Pulse Resp BP Pulse Ox O2 Del Method 99.5 F H 90 16 122/87 H 95 Room Air 11/05/23 09:00 11/05/23 09:00 11/05/23 09:00 11/05/23 09:00 11/05/23 09:00 11/05/23 09:00 Oxygen Delivery Method Room Air Weight: 129 lb 3.054 oz Body Mass Index (BMI) 19.1 Intake & Output: Intake and Output for Last 24 Hours 11/03/23 11/04/23 11/05/23 23:59 23:59 23:59 Intake Total 817.5 / 1067.5 1581.25 / 1581.25 Balance 817.5 / 1067.5 1581.25 / 1581.25 Lab / Micro Data 11/05/23 06:24 11/05/23 06:24 Labs: Laboratory Results - last 24 hr 11/04/23 15:30: WBC 8.8, RBC 4.98, Hgb 14.9, Hct 42.9, MCV 86.1, MCH 29.9, MCHC 34.7, RDW Std Deviation 37.8, RDW Coeff of Joseph 12.0, Plt Count 175, MPV 10.4, Immature Gran % (Auto) 0.200, Neut % (Auto) 81.0 H, Lymph % (Auto) 9.1 L, [place] % (Auto) 9.0, Eos % (Auto) 0.5, Baso % (Auto) 0.2, Absolute Neuts (auto) 7.1, A bsolute Lymphs (auto) 0.80 L, Nucleated RBC % 0, PT 14.5, INR 1.1, APTT 32.1, S odium 129 L, Potassium 3.9, Chloride 95 L, Carbon Dioxide 27.0, Anion Gap 7, BUN 13, Creatinine 0.90, Estim Creat Clear Calc 80.09, Est GFR (MDRD) Af Amer 112, Est GFR (MDRD) Non-Af 93, BUN/Creatinine Ratio 14.4, Glucose 110 H, Lactic Acid 1.8, Calcium 9.2, Total Bilirubin 0.70, AST 13 L, ALT 13 L, Alkaline Phosphatase 69, Troponin I High Sens 5, B-Natriuretic Peptide 4.5, Total Protein 7.6, Albumin 3.5, Globulin 4.1, Albumin/Globulin Ratio 0.9 11/04/23 16:55: Urine Color Yellow, Urine Clarity Clear, Urine pH 7.0, Ur Specific [place] 1.010, Urine Protein 15 H, Urine Glucose (UA) Normal, Urine Ketones 50 H, Urine Occult Blood Negative, Urine Nitrite Negative, Urine Bilirubin Negative, Urine Urobilinogen 4 H, Ur Leukocyte Esterase Negative, Urine RBC 0 SEEN, Urine WBC 0 SEEN, Ur Squamous Epith Cells 0 SEEN, Urine Bacteria 0 SEEN, Urine Mucus 0 SEEN 11/04/23 17:53: Procalcitonin 0.20 H 11/05/23 06:24: WBC 8.3, RBC 4.36 L, Hgb 13.1, Hct 37.6 L, MCV 86.2, MCH 30.0, MCHC 34.8, RDW Std Deviation 38.0, RDW Coeff of Joseph 12.0, Plt Count 164, MPV 10.1, Immature Gran % (Auto) 0.200, Neut % (Auto) 75.4 H, Lymph % (Auto) 11.8 L, [place] % (Auto) 11.8 H, Eos % (Auto) 0.6, Baso % (Auto) 0.2, Absolute Neuts (auto) 6.2, Absolute Lymphs (auto) 0.97, Nucleated RBC % 0, Sodium 136, Potassium 3.6, Chloride 104, Carbon Dioxide 27.0, Anion Gap 5, BUN 9, Creatinine 0.83, Estim Creat Clear Calc 83.35, Est GFR (MDRD) Af Amer 124, Est GFR (MDRD) Non-Af 102, BUN/Creatinine Ratio 10.9, Glucose 107 H, Calcium 8.3 L, Total Bilirubin 0.50, A ST 11 L, ALT 11 L, Alkaline Phosphatase 56, Total Protein 6.4, Albumin 2.7 L, Globulin 3.7, Albumin/Globulin Ratio 0.7 L Micro: Microbiology 11/04/23 20:35 Mucosa - Nasopharyngeal Respiratory Panel (PCR) - Final 11/04/23 16:58 Urine, Clean Catch Legionella Antigen - Final 11/04/23 16:58 Urine, Clean Catch Streptococcus pneumoniae Antigen (M - Final 11/04/23 15:44 Mucosa - Nose SARS-CoV-2, Influenza & RSV (PCR) - Final Radiography Diagnostic Testing: Radiology Impression Chest X-Ray 11/04/23 15:35 IMPRESSION: Probable interstitial pneumonia in left lower lobe. Clinical correlation recommended Electronically Signed: Tevin Hawley MD at 16:21 EDT Reading Location ID and State: [address] [place] [address] Tel , Service support , Physical Exam Const alert, oriented x3 and no apparent distress Constitutional Narrative: Frail HEENT normocephalic, head/scalp atraumatic, moist oral mucous membranes and oropharynx normal Neck no lymphadenopathy, supple and no JVD Lymph Lymphatic: no lymphadenopathy noted and no lymphedema noted Resp Resp Narrative: mildly diminished breath sounds bibasally, no wheezes or crackles. On room air. Cardio regular rate GI normal to inspection, nondistended, normoactive bowel sounds, soft to palpation, non-tender and non-distended Extremity General Extremity: no tenderness to palpation of joints or extremities Skin General Skin Exam: no breakdown Neuro CN's II-XII intact bilaterally, no focal motor deficits, no sensory deficits noted and deep tendon reflexes 2+ bilaterally Motor Exam: strength 5/5 throughout and general weakness Psych thought process normal, cooperative and affect normal Appearance: appropriate Assessment & Plan Assessment/Plan (1) Acute viral syndrome: (2) Pneumonia: PLAN: Plan #Hypoxia due to community acquired pneumonia * currently on room air * on IV ceftriaxone and azithromycin * wbc is 9.2. Did have a fever of 99.5F today * breathing treatment with bronchodilators. Titrate oxygen to maintain sats >90% * #History of CVA * Of thought to be on embolic stroke. Has residual left-sided weakness. Echo done showed evidence of a PFO but hypercoagulable panel was negative. * Was supposed to be on aspirin and Plavix but patient stopped medication on his own. Medication resumed including statin. #History of esophageal impaction with perforation * had resultant surgery a * currently stable * #Hyperlipidemia: on statin DVT prophylaxis: julisanox Code status: full code Charges/Coding Visit Charges Inpatient E&M: 25112 Subs Hosp L2
--- NOTE | 2023-11-05 15:58 | CASEMGMT ---
BLAYNE RUSSO Assessment: Face to Face with pt for initial transition planning/care coordination assessment. BLAYNE RUSSO introduced self and role at [facility], pt voices understanding and consents to assessment. Pt is A&O x4 and answers all questions appropriately at this time. Pt sitting up in bed on RA in no distress with present at bedside. Care providers, pharmacy, and demographics verified/updated. Admitting Dx: LLL pna, hypoxia PCP:None, provided PCP pamphlet, pt to set up. Denies need for assistance with this. Specialists:Denies Preferred Pharmacy: [facility] Insurance: Jerry Aenicolasa Prescription Benefit: yes LNOK: Jinny Stone, Living Arrangements: Pt lives with in a two story home with 5 steps to enter with a rail. 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 Pt denies concerns at home. Transportation: Pt drives self and denies concerns with transportation. DME:Denies HHC/SNF: Denies hx of Pt states no concerns with going home at time of dc. 6 cl=24. Pt states no further concerns/needs. CM to follow. Advised pt to ask CM if any further question/concerns/needs arise, voices understanding. Pt Goal: Home Plan: Home, follow for oxygen needs. Loraine CISNEROS CM
[2023-11-05 18:58] VITALS: PULSE 96; RESP 16; O2SAT 93
[2023-11-05] MEDS: Atorvastatin Calcium 80 MG Tablet PO (20:44)
[2023-11-05 20:56] VITALS: BP 119/76; PULSE 97; RESP 16; TEMP 37.1; O2SAT 98
[2023-11-05] MEDS: traZODone 50 MG Tablet PO (21:35)
[2023-11-05] MEDS: guaiFENesin 10 ML UDC (200MG/10ML) 20 ML PO (21:35)
[2023-11-06 03:00] VITALS: BP 122/70; PULSE 92; RESP 16; TEMP 36.6; O2SAT 95
[2023-11-06 06:00] VITALS: BMI 19.1
[2023-11-06 06:42] VITALS: PULSE 75; RESP 18; O2SAT 93
[2023-11-06] MEDS: Budesonide Respules 0.5 MG/2 ML AMPUL.NEB. INHALATION (06:42)
[2023-11-06 07:34] LABS: Absolute Lymphocyte Count 1.18 X10^3/uL (0.83-4.51); Absolute Neutrophil Count 3.3 X10^3/uL (2.0-7.7); Basophil# 0.02 X10^3/uL; Basophil% 0.4 % (0-1); Eosinophil# 0.14 X10^3/uL; Eosinophils% 2.5 % (0-5); Hemoglobin 13.3 g/dL (13.0-16.5); Lymphocyte # 1.18 X10^3/ul (0.83-4.51); Lymphocyte % 21.4 % (19-41); Mean Corp Hgb Conc 34.1 g/dL (32-36); Mean Corpuscular Hgb 29.9 pg (27.0-32.0); Mean Corpuscular Volume 87.6 fL (80-94); Mean Platelet Vol. 10.6 fl (6.2-12.0); Monocyte# 0.88 X10^3/uL; Monocyte% 15.9 % (0-10); NRBC Flagged by Analyzer 0 % (0-5); Neutrophil # 3.28 X10^3/uL (2.7-7.7); Neutrophil % 59.4 % (47-70); Platelet Count 210 K/mm3 (150-450); RBC Distribution Width CV 12.1 % (11.6-14.6); RBC Distribution Width SD 38.8 fl (35.1-43.9); Red Blood Count 4.45 M/mm3 (4.6-6.2); White Blood Count 5.5 K/mm3 (4.4-11.0)
[2023-11-06 08:06] LABS: Anion Gap 7 (5-15); BUN 10 mg/dL (7-18); Calcium,Total 8.7 mg/dL (8.5-10.1); Chloride 105 mmol/L (98-107); Creatinine, Serum 0.91 mg/dL (0.70-1.30); EST Glomerular Filtration Rate 92 mL/min (>60); Est Glom Filt Rate - Afr Amer 111 mL/min (>60); Estimated Creatinine Clearance 76.02 ml/min; Glucose 117 mg/dL (74-106); Potassium 3.6 mmol/L (3.5-5.1); Sodium Level 137 mmol/L (136-145)
[2023-11-06] MEDS: Aspirin 81 MG TAB.CHEW PO (09:05)
[2023-11-06] MEDS: Ceftriaxone 1 GM/50 ML BAG IV (09:05)
[2023-11-06] MEDS: 0.9% Saline Lock 10 ML Syringe IV (09:05)
[2023-11-06 09:30] VITALS: BP 118/81; PULSE 80; RESP 18; TEMP 36.6; O2SAT 96; O2SAT 97
[2023-11-06] MEDS: Azithromycin 500 MG in Dextrose 5%-Water (250mL Bag) 250 ML 250 MG IV (10:03)
--- NOTE | 2023-11-06 10:09 | DCINST_ITS ---
Discharge Instructions Diet Discharge Diet: Low fat / Low cholesterol Activity Discharge Activity: Return to Normal Activity Weight Bearing Status: Weight bearing as tolerated Dressing / Incision Call your doctor if you observe: Fever of 101 or Higher, Shortness of breath, Dizziness, Swelling in the ankles and Chest pain Follow Up Care Test Results: Test results from this visit will be discussed in further detail at your follow- up appointment, if applicable. Discharge Plan Admission Admit Date/Time: 11/04/23 17:41 Primary Reason for Your Visit: community acquired pneumonia Attending Provider: Graciela Aleman Primary Care Provider: Care Physician,No Primary Consulting Providers: Aleta Slade Instructions Patient Instructions: ED Pneumonia (Adult) Discharge Orders/Prescriptions Prescriptions: New levofloxacin 750 mg tablet 750 mg PO DAILY Qty: 3 0RF Continued tramadol 50 mg tablet 50 mg PO Q6H PRN (Reason: pain) 3 Days Qty: 10 0RF albuterol sulfate [Ventolin HFA] 90 mcg/actuation HFA aerosol inhaler 1 - 2 puff inhalation Q4H PRN PRN (Reason: Wheezing) Qty: 1 0RF Referrals / Follow Up: Johnny Marshall MD [Med Staff - Active Staff] - Within 2 Weeks (see to establish PCP care) Care Physician,No Primary [Primary Care Provider] - Disposition Disposition (needs filled in before D/C Order can be placed): Home, Self Care
--- NOTE | 2023-11-06 10:09 | DS.PCM_ITS ---
Providers Date of Admission: 11/04/23 Date of Discharge: 11/06/23 Primary Care Physician: No Primary Care Phys Reason For Visit: LLL PNA, HYPOXIA Diagnosis Discharge Diagnosis (1) Acute viral syndrome: Status: Acute Code(s): B34.9 - Viral infection, unspecified (2) Pneumonia: Status: Acute Code(s): J18.9 - Pneumonia, unspecified organism Plan #Hypoxia due to community acquired pneumonia * currently on room air * on IV ceftriaxone and azithromycin * wbc is 9.2. Did have a fever of 99.5F today * breathing treatment with bronchodilators. Titrate oxygen to maintain sats >90% * #History of CVA * Of thought to be on embolic stroke. Has residual left-sided weakness. Echo done showed evidence of a PFO but hypercoagulable panel was negative. * Was supposed to be on aspirin and Plavix but patient stopped medication on his own. Medication resumed including statin. #History of esophageal impaction with perforation * had resultant surgery a * currently stable * #Hyperlipidemia: on statin DVT prophylaxis: lovenox Code status: full code Medications at Discharge Home Medications albuterol sulfate 90 mcg/actuation aerosol inhaler (Ventolin HFA) 1 - 2 puff inhalation Q4H PRN PRN Wheezing ##1 10/31/23 tramadol 50 mg tablet 50 mg PO Q6H PRN pain 3 days #10 tabs 10/31/23 levofloxacin 750 mg tablet 750 mg PO DAILY #3 tabs 11/06/23 Hospital Course Operations None Procedures None Summary of Care Provided Minutes Spent on Discharge: 47 Hospital Course: Patient is a 53-year-old male with an extensive past medical history as outlined including history of CVA due to embolic stroke with noted PFO was admitted to the ED on 11/04/2023 with a complaint of cough, left-sided pleuritic chest pain and fatigue and malaise as well as fever. He had been seen in the hospital on 10/31/2023 and workup was largely consistent with an acute viral syndrome. He was discharged home with albuterol and tramadol. However his symptoms worsened with associated worsening headache and decreased oral intake as well as increasing weakness so he came into the ED. He had poor appetite and also had upper respiratory symptoms significant for cough, chest congestion and dyspnea as well as diaphoresis and fever. He also had occasional wheezing and dyspnea. Workup in the ED was significant for tachycardia and tachypnea and was saturating 96% on room air. Temperature was 98.8. Was saturating at 92% on room air. Chest x-ray showed probable interstitial pneumonia in the left lower lobe. He was admitted and managed for hypoxia due to acute viral syndrome with probable superimposed bacterial pneumonia. He was started on IV ceftriaxone and azithromycin and hydrated with fluids. Patient did not require any oxygen during his stay and subsequently did feel better. His symptoms largely resolved. Respiratory panel was negative. Urine for strep and Legionella were also negative. He remained stable and was discharged on 11/06/2023. He was discharged on p.o. levofloxacin 700 mg daily x 3 days to complete a 5-day course of antibiotics. He is follow-up with his primary care doctor within 1 to 2 weeks. Of note, he was referred to [facility] to establish PCP care. Patient was seen and examined prior to discharge. He felt much better and wanted to be discharged home. He had no complaints and review of systems otherwise negative. Physical Exam Const alert, oriented x3 and no apparent distress Constitutional Narrative: Frail General Appearance: cooperative, comfortable and well kempt Orientation / Consciousness: awake Exam Limitations: no limitations HEENT normocephalic, head/scalp atraumatic, hearing grossly normal bilaterally, moist oral mucous membranes and oropharynx normal Mouth: oral and palatal mucosa normal Eyes PERRL, EOMs intact bilaterally and conjunctivae normal Neck no lymphadenopathy, supple and no JVD Lymph Lymphatic: no lymphadenopathy noted and no lymphedema noted Resp Resp Narrative: mildly diminished breath sounds bibasally, no wheezes or crackles. On room air. Cardio regular rate, regular rhythm, S1 normal heart sound, S2 normal heart sound and no murmurs GI normal to inspection, nondistended, normoactive bowel sounds, soft to palpation, non-tender and non-distended Extremity normal to inspection, full ROM and no clubbing, cyanosis or edema General Extremity: no tenderness to palpation of joints or extremities Skin General Skin Exam: no breakdown Neuro oriented x3, CN's II-XII intact bilaterally, moves all extremities, no focal motor deficits, no sensory deficits noted and deep tendon reflexes 2+ bilaterally Sensorium / Orientation: awake and alert Motor Exam: strength 5/5 throughout and general weakness Psych thought process normal, cooperative and affect normal Appearance: appropriate Weight / BMI Weight Weight: 129 lb 3.054 oz Body Mass Index (BMI) 19.1 ABG / Lab / Microbiology Data 11/06/23 06:56 11/06/23 06:56 Laboratory: Laboratory Results - last 24 hr 11/06/23 06:56: WBC 5.5, RBC 4.45 L, Hgb 13.3, Hct 39.0 L, MCV 87.6, MCH 29.9, MCHC 34.1, RDW Std Deviation 38.8, RDW Coeff of Joseph 12.1, Plt Count 210, MPV 10.6, Immature Gran % (Auto) 0.400, Neut % (Auto) 59.4, Lymph % (Auto) 21.4, M franklin % (Auto) 15.9 H, Eos % (Auto) 2.5, Baso % (Auto) 0.4, Absolute Neuts (auto) 3.3, Absolute Lymphs (auto) 1.18, Nucleated RBC % 0, Sodium 137, Potassium 3.6, Chloride 105, Carbon Dioxide 25.0, Anion Gap 7, BUN 10, Creatinine 0.91, Estim Creat Clear Calc 76.02, Est GFR (MDRD) Af Amer 111, Est GFR (MDRD) Non-Af 92, BUN/Creatinine Ratio 11.0, Glucose 117 H, Calcium 8.7 Microbiology: Microbiology 11/04/23 20:45 Sputum, Expectorated/Coughed Gram Stain - Final 11/04/23 20:35 Mucosa - Nasopharyngeal Respiratory Panel (PCR) - Final 11/04/23 16:58 Urine, Clean Catch Legionella Antigen - Final 11/04/23 16:58 Urine, Clean Catch Streptococcus pneumoniae Antigen (M - Final 11/04/23 15:44 Mucosa - Nose SARS-CoV-2, Influenza & RSV (PCR) - Final D/C Instructions Discharge Diet: Low fat / Low cholesterol Discharge Activity: Return to Normal Activity Weight Bearing Status: Weight bearing as tolerated Call your doctor if you observe: Fever of 101 or Higher, Shortness of breath, Dizziness, Swelling in the ankles and Chest pain Meaningful Use Info Meaningful Use Meaningful Use Diagnoses (Choose all that apply): None applicable Ischemic Stroke Statin Dosing Therapy Reference: STATIN DOSE THERAPY REFERENCE: * Patients > 75 years receive moderate or high dose statin therapy. * Patients 75 years or YOUNGER should receive HIGH intensity statin dose unless contraindicated. You will be required to document reason for non-treatment if statin daily dose does not meet guidelines. HIGH DOSE STATIN THERAPY DAILY Atorvastatin > than or = to 40 mg Rosuvastatin > than or = to 20 mg Amlodipine + Atorvastatin > than or = to 2.5/40 mg Ezetimibe + Simvastatin 10/80 mg Simvastatin 80mg Discharge Plan Admission Admit Date/Time: 11/04/23 17:41 Primary Reason for Your Visit: community acquired pneumonia Attending Provider: Graciela Aleman Primary Care Provider: Care Physician,No Primary Consulting Providers: Aleta Slade Instructions Patient Instructions: ED Pneumonia (Adult) Discharge Orders/Prescriptions Prescriptions: New levofloxacin 750 mg tablet 750 mg PO DAILY Qty: 3 0RF Continued tramadol 50 mg tablet 50 mg PO Q6H PRN (Reason: pain) 3 Days Qty: 10 0RF albuterol sulfate [Ventolin HFA] 90 mcg/actuation HFA aerosol inhaler 1 - 2 puff inhalation Q4H PRN PRN (Reason: Wheezing) Qty: 1 0RF Referrals / Follow Up: Johnny Marshall MD [Med Staff - Active Staff] - Within 2 Weeks (see to establish PCP care) Care Physician,No Primary [Primary Care Provider] - Disposition Disposition (needs filled in before D/C Order can be placed): Home, Self Care Charges/Coding Visit Charges Inpatient E&M: 57692 Disch Hosp >30min
--- NOTE | 2023-11-06 11:10 | PHA.DC.MC.R ---
Pharmacy [facility] has performed discharge medication reconciliation and counseling for this patient. The patient's discharge medication list was reviewed for discrepancies and discrepancies were resolved. The patient was counseled on the following discharge medications and changes in medications for homegoing were reviewed. 1. ERICK The Reason for Use, instructions for use, and potential side effects were reviewed for all new medications. The patient's questions regarding all of their medications were answered. The patient was able to verbally demonstrate an understanding of their discharge medications. The patient was counselled by Rome Miles PharmD Candidate Medications at Discharge Home Medications albuterol sulfate 90 mcg/actuation aerosol inhaler (Ventolin HFA) 1 - 2 puff inhalation Q4H PRN PRN Wheezing ##1 10/31/23 tramadol 50 mg tablet 50 mg PO Q6H PRN pain 3 days #10 tabs 10/31/23 levofloxacin 750 mg tablet 750 mg PO DAILY #3 tabs 11/06/23
== END 2023-11-06 13:16 | disposition home or self-care (01) ==
LOC: ED 17:35 → MS3 17:47
PROVIDERS: Admitting Provider Family Medicine; Emergency Provider Emergency Medicine; Visit Provider Student in an Organized Health Care Education/Training Program
DX: J18.9 Pneumonia, unspecified organism (principal); I69.954 Hemiplegia and hemiparesis following unspecified cerebrovascular disease affecting left non-dominant side; R41.0 Disorientation, unspecified; R09.02 Hypoxemia; E78.5 Hyperlipidemia, unspecified; Z87.891 Personal history of nicotine dependence; R51.9 Headache, unspecified; R53.81 Other malaise; B34.9 Viral infection, unspecified
CPT/HCPCS: 36415; 71045; 80048; 80053; 81001; 83605; 83880; 84145; 84484; 85025; 85610; 85730; 87040; 87070; 87086; 87205; 87449; 87631; 87633; 93005; 94640; 94668; 96361; 96365; 96366; 96367; 96372; 96375; 99221; 99285; J7030; A4216; G0378